=== PATIENT | male | born 1965 | race Caucasian/White ===

== ENCOUNTER → 2017-04-16 | Outpatient (CLI) | payer MEDICARE ==
--- NOTE | 2017-04-16 11:49 | XR ---
EXAMINATION TYPE: XR sternum DATE OF EXAM: 04/16/2017 COMPARISON: NONE HISTORY: Precordial pain TECHNIQUE: 3 view sternum FINDINGS: Retrosternal space is normal. No acute fractures are evident. Sternomanubrial junction appe ars normal. Sternal clavicular junction is unremarkable. IMPRESSION: 1. Normal sternum
== END ==
LOC: RADXRMAIN 11:26
PROVIDERS: ATTEND Family Medicine
DX: R07.2 Precordial pain (principal)
CPT/HCPCS: 71120

== ENCOUNTER → 2017-06-20 | Outpatient (CLI) | payer MEDICARE ==
--- NOTE | 2017-06-20 14:07 | CT ---
EXAMINATION TYPE: CT abdomen pelvis w con DATE OF EXAM: 06/20/2017 COMPARISON: 07/31/2014 HISTORY: 52-year-old male complains of constipation. TECHNIQUE: Contiguous axial scanning of the abdomen and pelvis following administration of 100 ml Omn ipaque 300 IV contrast. Delayed images through the kidneys and coronal/sagittal reconstructions perf ormed. CT DLP: 935 mGycm Automated exposure control for dose reduction was used. FINDINGS: Heart is normal size without pericardial effusion. Lung bases clear without pleural effusion. No focal liver lesion or biliary ductal dilatation. Gallbladder, adrenal glands, kidneys, spleen, and pancreas within normal limits. No dilated small bowel, free fluid, or free air. No mesenteric or retroperitoneal lymphadenopathy see n. 1.3 cm cystic focus in the left paraaortic region at the level of the kidneys is unchanged from 20 15 compatible with a benign etiology. There is a right abdominal loop ileostomy. Small parastomal hernia containing ileal loop is unchanged measuring 5.7 cm wide. There is scattered minimal to mild stool within the colon but with fecal impaction at the level of th e rectum which measures 9.7 cm x 8.9 cm. No associated wall thickening or surrounding inflammation. B ladder urine distended. No abnormal fluid collection in the pelvis or pelvic lymphadenopathy. Bones: Degenerative changes at the SI joints. No osseous destructive process. IMPRESSION: 1. RIGHT ABDOMINAL LOOP ILEOSTOMY WITH SIMILAR SMALL PARASTOMAL HERNIA MEASURING 5.7 CM WIDE. 2. FECAL IMPACTION AT THE LEVEL OF THE RECTUM WHICH IS DISTENDED UP TO 9.7 X 8.9 CM. THE REMAINDER OF THE COLON CONTAINS ONLY MINIMAL TO MILD STOOL.
== END | disposition home or self-care (01) ==
LOC: RADCTMAIN 11:36
PROVIDERS: ATTEND Surgery
DX: K43.5 Parastomal hernia without obstruction or gangrene (principal); K56.41 Fecal impaction
CPT/HCPCS: 74177; Q9967

== ENCOUNTER → 2018-12-30 | Outpatient (CLI) | payer MEDICARE ==
--- NOTE | 2018-12-30 08:42 | CT ---
EXAMINATION TYPE: CT abdomen pelvis wo con DATE OF EXAM: 12/30/2018 COMPARISON: 06/20/2017 HISTORY: 53-year-old male Colitis CT DLP: 285.80 mGycm. Automated exposure control for dose reduction was used. TECHNIQUE: Contiguous axial scanning of the abdomen and pelvis without IV contrast. Coronal and sagit filemon reconstructions performed. FINDINGS: Heart normal size without pericardial effusion. Strandy atelectasis posterior left base without pleur al effusion. Noncontrast appearance of the liver, gallbladder, adrenal glands, kidneys, spleen, and pancreas show no gross abnormality. Lack of IV contrast decreases sensitivity. A 1.4 cm nodular structure along the left periaortic retroperitoneum is unchanged back to 2015 sugges ting a benign etiology, probably ectatic/dilated lymphatic channel. No dilated small bowel, free fluid, or free air. No mesenteric or retroperitoneal lymphadenopathy. Right lower quadrant ostomy is redemonstrated. Parastomal hernia contains a few loops of nonobstructe d small bowel and measures 7.9 cm wide versus 6.1 cm wide on 06/20/2017. There is moderate stool within the cecum. Additional large amount of stool in the rectum which is dis tended up to 7.9 x 8.9 cm versus 8.9 x 9.7 cm on 06/20/2017. The remainder of the colon is collapsed. No pericolonic inflammatory change. Bladder urine distended. No abnormal fluid collection in the pelvis or pelvic lymphadenopathy seen. Bones: Degenerative bridging bony ankylosis at the SI joints. Degenerative disc disease L5-S1. No oss eous destructive process. IMPRESSION: 1. Right lower quadrant ostomy and associated parastomal hernia (7.9 cm wide versus 6.1 cm wide on ) containing a few nonobstructed small bowel loops. 2. Moderate stool in the cecum. A large amount of stool distends the rectum (distended up to 8.9 x 7 .9 cm versus 9.7 x 8.9 cm, previously).
== END | disposition home or self-care (01) ==
LOC: RADCTMAIN 06:29
PROVIDERS: ATTEND Surgery Plastic and Reconstructive Surgery
DX: R19.5 Other fecal abnormalities (principal)
CPT/HCPCS: 74176; Q9967

== ENCOUNTER → 2018-12-31 | Outpatient (CLI) | payer MEDICARE ==
[2018-12-31 11:16] VITALS: BP 117/78; PULSE 102; RESP 16; TEMP 99.1
== END | disposition home or self-care (01) ==
LOC: PROCWHC3 10:53
PROVIDERS: ATTEND Surgery Plastic and Reconstructive Surgery
DX: K59.2 Neurogenic bowel, not elsewhere classified (principal); K52.9 Noninfective gastroenteritis and colitis, unspecified; Z93.2 Ileostomy status
CPT/HCPCS: 99213

== ENCOUNTER → 2019-01-28 | Outpatient (CLI) | payer MEDICARE ==
[2019-01-28 11:24] LABS: Basophils % (A) 1 %; Eosinophils # (A) 0.1 k/uL (0-0.7); Eosinophils % (A) 2 %; HCT 42.3 % (39.0-53.0); HGB 14.2 gm/dL (13.0-17.5); Lymphocytes # (A) 0.9 k/uL (1.0-4.8); Lymphocytes % (A) 20 %; MCH 31.5 pg (25.0-35.0); MCHC 33.5 g/dL (31.0-37.0); MCV 93.8 fL (80.0-100.0); Mean Platelet Volume 6.1; Monocytes # (A) 0.2 k/uL (0-1.0); Monocytes % (A) 5 %; Neutrophils # (A) 3.2 k/uL (1.3-7.7); Neutrophils % (A) 70 %; Platelet Count 216 k/uL (150-450); RDW 12.3 % (11.5-15.5); WBC 4.6 k/uL (3.8-10.6)
[2019-01-28 16:46] LABS: T4, Free (Free Thyroxine) 1.1 ng/dL (0.80-1.80)
[2019-01-28 16:56] LABS: African American GFR (CKD) 99.1 (60.0-200.0); Albumin 4.7 g/dL (3.80-4.90); Albumin/Globulin Ratio 2.47 (1.60-3.17); Bilirubin, Conjugated 0.2 mg/dL (0.20-0.40); Bilirubin,Unconjugated 0.4 mg/dL; Calcium 9.1 mg/dL (8.7-10.3); Chol/HDL Ratio 3.21; Globulin 1.9 g/dL (1.6-3.3); LDL Cholesterol,Calculated 113.6 mg/dL (0.0-131.0); Total Bilirubin 0.6 mg/dL (0.2-1.2); Total Protein 6.6 g/dL (6.2-8.2); VLDL Calculation 10.4 mg/dL (5.00-40.00)
== END | disposition home or self-care (01) ==
LOC: LABWHC1 10:46
PROVIDERS: ATTEND Clinical Nurse Specialist Psychiatric/Mental Health
DX: F31.81 Bipolar II disorder (principal)
CPT/HCPCS: 36415; 80053; 80061; 80164; 82150; 82248; 82306; 83036; 83690; 84439; 84443; 84479; 85025

== ENCOUNTER → 2019-03-10 | Outpatient (CLI) | payer MEDICARE | END | disposition home or self-care (01) | LOC: LABWHC1 11:09 | PROVIDERS: ATTEND Psychiatry & Neurology Psychiatry | DX: F31.9 Bipolar disorder, unspecified (principal); Z51.81 Encounter for therapeutic drug level monitoring | CPT/HCPCS: 36415; 82306 ==

== ENCOUNTER 2020-05-29 02:35 | Inpatient (IN) | payer MEDICARE ==
[2020-05-29 03:31] LABS: ALT 17 U/L (4-49); AST 22 U/L (17-59); African American GFR (CKD) >90 (>60 ml/min/1.73 sqM); Albumin 4.3 g/dL (3.5-5.0); Alkaline Phosphatase 78 U/L (38-126); Amylase 119 U/L (30-110); Anion Gap 11 mmol/L; Basophils % (A) 0 %; Blood Urea Nitrogen 15 mg/dL (9-20); Carbon Dioxide 24 mmol/L (22-30); Chloride 105 mmol/L (98-107); Eosinophils # (A) 0.1 k/uL (0-0.7); Eosinophils % (A) 1 %; Glucose 123 mg/dL (74-99); HCT 43.3 % (39.0-53.0); HGB 14.5 gm/dL (13.0-17.5); Lipase 147 U/L (23-300); Lymphocytes # (A) 0.9 k/uL (1.0-4.8); Lymphocytes % (A) 9 %; MCH 30.9 pg (25.0-35.0); MCHC 33.6 g/dL (31.0-37.0); Mean Platelet Volume 6.9; Monocytes # (A) 0.5 k/uL (0-1.0); Monocytes % (A) 5 %; Neutrophils # (A) 9.2 k/uL (1.3-7.7); Neutrophils % (A) 85 %; Non-African American GFR(CKD) >90 (>60 ml/min/1.73 sqM); Platelet Count 214 k/uL (150-450); Potassium 3.6 mmol/L (3.5-5.1); RDW 12.4 % (11.5-15.5); Sodium 140 mmol/L (137-145); Total Bilirubin 0.5 mg/dL (0.2-1.3); Total Protein 7.3 g/dL (6.3-8.2); WBC 10.8 k/uL (3.8-10.6)
[2020-05-29] MEDS ORDERED: ONDANSETRON 4 MG/2 ML VIAL IVP STA ×2 (03:44→03:48)
[2020-05-29] MEDS ORDERED: MORPHINE SULFATE 4 MG/ML SYRINGE IV STA (03:48)
--- NOTE | 2020-05-29 04:22 | CT ---
EXAM: CT Abdomen and Pelvis Without Intravenous Contrast CLINICAL HISTORY: ITS.REASON CT Reason: abdominal pain TECHNIQUE: Axial computed tomography images of the abdomen and pelvis without intravenous contrast. CTDI is 10.77 mGy and DLP is 588.9 mGy-cm. This CT exam was performed using one or more of the following dose reduction techniques: automated exposure control, adjustment of the mA and/or kV according to patient size, and/or use of iterative reconstruction technique. COMPARISON: 12/30/2018 FINDINGS: Lung bases: No mass. No consolidation. ABDOMEN: Liver: Unremarkable. Gallbladder and bile ducts: Unremarkable. Pancreas: No ductal dilation. Spleen: Unremarkable. Adrenals: Unremarkable. Kidneys and ureters: No obstructing stones. No hydronephrosis. Stomach and bowel: Evidence of small bowel obstruction with transition point in the right parastomal hernia. Mild inflammation around the small bowel loop in the right lower quadrant proximal to the hernia sac. Mild hiatal hernia. Severe stool impaction at the rectum. PELVIS: Appendix: No evidence of appendicitis. Bladder: No stones. Reproductive: Unremarkable. ABDOMEN and PELVIS: Intraperitoneal space: Unremarkable. Bones/joints: No acute fractures. Soft tissues: Right parastomal hernia. Vasculature: No abdominal aortic aneurysm. Lymph nodes: No enlarged lymph nodes. IMPRESSION: Evidence of small bowel obstruction with transition point in the right parastomal hernia. There is mild inflammation in the small bowel loop proximal to the hernia sac, suspicious for incarceration.
[2020-05-29] MEDS ORDERED: HYDROmorphone 1 MG/ML 1 ML SYRINGE IVP STA (04:31)
[2020-05-29] MEDS ORDERED: HYDROmorphone 1 MG/ML 1 ML SYRINGE IVP PRN (04:59)
[2020-05-29] MEDS ORDERED: HYDROmorphone 0.5 MG/0.5 ML SYRINGE IVP PRN (04:59)
[2020-05-29] MEDS ORDERED: ONDANSETRON 4 MG/2 ML VIAL IVP PRN (04:59)
[2020-05-29] MEDS ORDERED: NALOXONE 0.4 MG/ML 1 ML VIAL IV PRN (04:59)
[2020-05-29] MEDS: SODIUM CHLORIDE 0.9% 1,000 ML IV SCH ×3 (06:26→22:06)
[2020-05-29] MEDS: FAMOTIDINE 20 MG/2 ML VIAL IV SCH ×2 (06:34→16:41)
[2020-05-29] MEDS ORDERED: ONDANSETRON 4 MG TAB PO PRN (08:34)
[2020-05-29] MEDS: lamoTRIgine 100 MG TAB PO SCH (08:54)
[2020-05-29] MEDS: CHOLECALCIFEROL 25 MCG (1000 IU) TABLET PO SCH (08:54)
[2020-05-29] MEDS: buPROPion XL 300 MG TAB.ER.24H PO SCH (08:55)
--- NOTE | 2020-05-29 09:29 | P.CONS ---
History of Present Illness - Reason for Consult Leukocytosis, medical management, bipolar disorder - History of Present Illness Patient is a very pleasant 55-year-old gentleman presented to ER with the compla ints of severe abdominal pain. Patient has ileostomy patient has a hernia from the ileostomy. Patient was evaluated for surgery, periosteal hernia was reduced after which patient will be better but still having pain now. Patient is nauseous with Dilaudid patient was started on [place] for pain. Patient does have seizure disorder didn't have any seizures for many years. Patient is on Lamictal, Risperdal and Wellbutrin for bipolar disorder. As patient didn't have any seizures for many years of good and continue Wellbutrin as well. Review of Systems REVIEW OF SYSTEMS: CONSTITUTIONAL: No fever, no malaise, no fatigue. HEENT: No recent visual problems or hearing problems. Denied any sore throat. CARDIOVASCULAR: No chest pain, orthopnea, PND, no palpitations, no syncope. PULMONARY: No shortness of breath, no cough, no hemoptysis. GASTROINTESTINAL: As mentioned in the interval history NEUROLOGICAL: No headaches, no weakness, no numbness. HEMATOLOGICAL: Denies any bleeding or petechiae. GENITOURINARY: Denies any burning micturition, frequency, or urgency. MUSCULOSKELETAL/RHEUMATOLOGICAL: Denies any joint pain, swelling, or any muscle pain. ENDOCRINE: Denies any polyuria or polydipsia. The rest of the 14-point review of systems is negative. Past Medical History Past Medical History: Neurologic Disorder, Seizure Disorder, Skin Disorder Additional Past Medical History / Comment(s): VIPIN'S DISEASE, PARKINSON'S, BIPOLAR. LAST SEIZURE 01/2014. 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 LAZY BOWEL THEREFORE ILEOSTOMY. History of Any Multi-Drug Resistant Organisms: None Reported Past Surgical History: Hernia Repair, Orthopedic Surgery Additional Past Surgical History / Comment(s): RT FOOT SURG, COLONOSCOPY 05/2013- NEEDED TO BE CLEANED OUT BETTER- REPEAT COLONOSCOPY 06/29/14.medical history - being checked for vipin's disease. ILEOSTOMY. Past Anesthesia/Blood Transfusion Reactions: No Reported Reaction Past Psychological History: Bipolar Smoking Status: Never smoker Past Alcohol Use History: None Reported Past Drug Use History: None Reported - Past Family History Father Family Medical History: Unable to Obtain Mother Family Medical History: Unable to Obtain Medications and Allergies Home Medications Medication Instructions Recorded Confirmed Type buPROPion XL [Wellbutrin XL] 300 mg PO DAILY 05/20/14 05/29/20 History risperiDONE 3 mg PO HS 05/20/14 05/29/20 History Cholecalciferol [Vitamin D3 (25 50 mcg PO DAILY 05/29/20 05/29/20 History Mcg = 1000 Iu)] lamoTRIgine [LaMICtal] 200 mg PO DAILY 05/29/20 05/29/20 History ondansetron HCL [Zofran] 8 mg PO Q8HR PRN 05/29/20 05/29/20 History Allergies Allergy/AdvReac Type Severity Reaction Status Date / Time No Known Allergies Allergy Verified 05/29/20 08:13 Physical Exam Vitals: Vital Signs Temp Pulse Pulse Resp BP BP Pulse Ox 05/29/20 05:40 98.2 F 76 16 164/77 98 05/29/20 03:18 97.5 F L 74 16 151/82 98 05/29/20 02:43 98.5 F 100 18 140/86 98 Intake and Output 05/28/20 05/29/20 05/29/20 22:59 06:59 14:59 Intake Total 0 Balance 0 Intake: Oral 0 Other: Weight 81.647 kg PHYSICAL EXAMINATION: GENERAL: The patient is alert and oriented x3, not in any acute distress. Well developed, well nourished. HEENT: Pupils are round and equally reacting to light. EOMI. No scleral icterus. No conjunctival pallor. Normocephalic, atraumatic. No pharyngeal erythema. No thyromegaly. CARDIOVASCULAR: S1 and S2 present. No murmurs, rubs, or gallops. PULMONARY: Chest is clear to auscultation, no wheezing or crackles. ABDOMEN: Soft, nontender, nondistended, normoactive bowel sounds. No palpable organomegaly. She has an ileostomy in the right side no hernia when I evaluated the patient that was already reduced to general surgery MUSCULOSKELETAL: No joint swelling or deformity. EXTREMITIES: No cyanosis, clubbing, or pedal edema. NEUROLOGICAL: Gross neurological examination did not reveal any focal deficits. SKIN: No rashes. Results CBC & Chem 7: 05/29/20 03:15 05/29/20 03:15 Labs: Abnormal Lab Results - Last 24 Hours (Table) 05/29/20 05/29/20 Range/Units 03:15 03:15 WBC 10.8 H (3.8-10.6) k/uL Neutrophils # 9.2 H (1.3-7.7) k/uL Lymphocytes # 0.9 L (1.0-4.8) k/uL Glucose 123 H (74-99) mg/dL Amylase 119 H (30-110) U/L Assessment and Plan Plan: -Abdominal pain secondary to periosteal hernia being managed by general surgery. -Bipolar disorder continue with Lamictal risperidone and bupropion as patient's symptoms are very well controlled on this medication regimen and patient didn't have any seizures for years because of which continued all 3 of these medications. Patient is able to tolerate by mouth medications at this time. -Seizure disorder -DVT prophylaxis as per primary service
--- NOTE | 2020-05-29 10:43 | P.GSHP ---
History of Present Illness H&P Date: 05/29/20 Chief Complaint: Bowel obstruction 55-year-old male came to the ER last night with complaints of abdominal pain. Says it began rather acutely. Associated with nausea and decreased ostomy output. According to the ER physician the site around the ostomy was tender. CAT scan was obtained which demonstrates evidence of small bowel obstruction and a parastomal hernia. Hernia site thought to be the transition point. Patient had a loop ileostomy in 2014 for chronic constipation. Has had a known parastomal hernia for the last several years. Never had any prior problems with the hernia. - Review of Systems Comment: The patient denies any acute changes in vision or hearing, no dysphagia or odynophagia, no chest pain or shortness of breath, no dysuria or hematuria, no headache, no runny nose, no rectal bleeding or melena, no unexplained weight loss Past Medical History Past Medical History: Neurologic Disorder, Seizure Disorder, Skin Disorder Additional Past Medical History / Comment(s): VIPIN'S DISEASE, PARKINSON'S, BIPOLAR. LAST SEIZURE 01/2014. 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 LAZY BOWEL THEREFORE ILEOSTOMY. History of Any Multi-Drug Resistant Organisms: None Reported Past Surgical History: Hernia Repair, Orthopedic Surgery Additional Past Surgical History / Comment(s): RT FOOT SURG, COLONOSCOPY 05/2013- NEEDED TO BE CLEANED OUT BETTER- REPEAT COLONOSCOPY 06/29/14.medical history - being checked for vipin's disease. ILEOSTOMY. Past Anesthesia/Blood Transfusion Reactions: No Reported Reaction Past Psychological History: Bipolar Smoking Status: Never smoker Past Alcohol Use History: None Reported Past Drug Use History: None Reported - Past Family History Father Family Medical History: Unable to Obtain Mother Family Medical History: Unable to Obtain Medications and Allergies Home Medications Medication Instructions Recorded Confirmed Type buPROPion XL [Wellbutrin XL] 300 mg PO DAILY 05/20/14 05/29/20 History risperiDONE 3 mg PO HS 05/20/14 05/29/20 History Cholecalciferol [Vitamin D3 (25 50 mcg PO DAILY 05/29/20 05/29/20 History Mcg = 1000 Iu)] lamoTRIgine [LaMICtal] 200 mg PO DAILY 05/29/20 05/29/20 History ondansetron HCL [Zofran] 8 mg PO Q8HR PRN 05/29/20 05/29/20 History Allergies Allergy/AdvReac Type Severity Reaction Status Date / Time No Known Allergies Allergy Verified 05/29/20 08:13 Surgical - Exam Vital Signs Temp Pulse Resp BP Pulse Ox 98.5 F 100 18 140/86 98 05/29/20 02:43 05/29/20 02:43 05/29/20 02:43 05/29/20 02:43 05/29/20 02:43 Physical exam: General: Well-developed, well-nourished HEENT: Normocephalic, sclerae nonicteric Abdomen: Mild diffuse tenderness, slightly increased around the ostomy site, able to reduce the parastomal hernia without significant difficulty and without significant tenderness. Following reduction the patient was evaluated 30 m inutes later and the ostomy bag was filled with liquid green stool. Extremities: No edema Neuro: Alert and oriented Results - Labs 05/29/20 03:15 05/29/20 03:15 Abnormal Lab Results - Last 24 Hours (Table) 05/29/20 05/29/20 Range/Units 03:15 03:15 WBC 10.8 H (3.8-10.6) k/uL Neutrophils # 9.2 H (1.3-7.7) k/uL Lymphocytes # 0.9 L (1.0-4.8) k/uL Glucose 123 H (74-99) mg/dL Amylase 119 H (30-110) U/L Diabetes panel 05/29/20 Range/Units 03:15 Sodium 140 (137-145) mmol/L Potassium 3.6 (3.5-5.1) mmol/L Chloride 105 (98-107) mmol/L Carbon Dioxide 24 (22-30) mmol/L BUN 15 (9-20) mg/dL Creatinine 0.79 (0.66-1.25) mg/dL Glucose 123 H (74-99) mg/dL Calcium 9.0 (8.4-10.2) mg/dL AST 22 (17-59) U/L ALT 17 (4-49) U/L Alkaline Phosphatase 78 (38-126) U/L Total Protein 7.3 (6.3-8.2) g/dL Albumin 4.3 (3.5-5.0) g/dL Calcium panel 05/29/20 Range/Units 03:15 Calcium 9.0 (8.4-10.2) mg/dL Albumin 4.3 (3.5-5.0) g/dL Pituitary panel 05/29/20 Range/Units 03:15 Sodium 140 (137-145) mmol/L Potassium 3.6 (3.5-5.1) mmol/L Chloride 105 (98-107) mmol/L Carbon Dioxide 24 (22-30) mmol/L BUN 15 (9-20) mg/dL Creatinine 0.79 (0.66-1.25) mg/dL Glucose 123 H (74-99) mg/dL Calcium 9.0 (8.4-10.2) mg/dL Adrenal panel 05/29/20 Range/Units 03:15 Sodium 140 (137-145) mmol/L Potassium 3.6 (3.5-5.1) mmol/L Chloride 105 (98-107) mmol/L Carbon Dioxide 24 (22-30) mmol/L BUN 15 (9-20) mg/dL Creatinine 0.79 (0.66-1.25) mg/dL Glucose 123 H (74-99) mg/dL Calcium 9.0 (8.4-10.2) mg/dL Total Bilirubin 0.5 (0.2-1.3) mg/dL AST 22 (17-59) U/L ALT 17 (4-49) U/L Alkaline Phosphatase 78 (38-126) U/L Total Protein 7.3 (6.3-8.2) g/dL Albumin 4.3 (3.5-5.0) g/dL Assessment and Plan (1) Small bowel obstruction Narrative/Plan: 55-year-old male with small bowel obstruction secondary to parastomal hernia. Hernia able to be reduced. Clinically improved at this time. We'll reevaluate tomorrow. Begin clear liquid diet. Current Visit: Yes Status: Acute Code(s): K56.609 - UNSP INTESTNL OBST, UNSP TO PARTIAL VERSUS COMPLETE OBST SNOMED Code(s): 617117163
[2020-05-29 14:50] LABS: Appearance,Urine Clear (Clear); Bilirubin,Urine Negative (Negative); Blood,Urine Small (Negative); Color,Urine Yellow; Glucose,Urine (UA) Negative (Negative); Hyaline Casts,Urine 1 /lpf (0-2); Ketones,Urine 2+ (Negative); Leukocyte Esterase,Urine Negative (Negative); Mucus,Urine Few /hpf; Nitrite,Urine Negative (Negative); PH, Urine 5.5 (5.0-8.0); Protein,Urine Trace (Negative); RBC,Urine 1 /hpf (0-5); Specific Gravity,Urine 1.024 (1.001-1.035); Urobilinogen,Urine <2.0 mg/dL (<2.0); WBC,Urine 3 /hpf (0-5)
[2020-05-29] MEDS: risperiDONE 1 MG TAB PO SCH (20:32)
[2020-05-29 20:57] LABS: Glucose,Whole Blood 91 mg/dL (75-99)
[2020-05-30] MEDS: FAMOTIDINE 20 MG/2 ML VIAL IV SCH ×2 (05:01→17:46)
[2020-05-30] MEDS: SODIUM CHLORIDE 0.9% 1,000 ML IV SCH ×2 (05:02→21:35)
[2020-05-30] MEDS: buPROPion XL 300 MG TAB.ER.24H PO SCH (08:41)
[2020-05-30] MEDS: lamoTRIgine 100 MG TAB PO SCH (08:41)
[2020-05-30] MEDS: CHOLECALCIFEROL 25 MCG (1000 IU) TABLET PO SCH (08:41)
--- NOTE | 2020-05-30 13:07 | P.PN ---
Subjective Patient is a very pleasant 55-year-old gentleman presented to ER with the complaints of severe abdominal pain. Patient has ileostomy patient has a hernia from the ileostomy. Patient was evaluated for surgery, periosteal hernia was reduced after which patient will be better but still having pain now. Patient is nauseous with Dilaudid patient was started on [place] for pain. Patient does have seizure disorder didn't have any seizures for many years. Patient is on Lamictal, Risperdal and Wellbutrin for bipolar disorder. As patient didn't have any seizures for many years of good and continue Wellbutrin as well. 05/30/2020 patient is clinically doing well tolerating liquid diet very well no more abdominal pain patient probably will be discharged today. Constitutional: Denied any fatigue denied any fever. Cardio vascular: denied any chest pain, palpitations Gastrointestinal denied any nausea vomiting Pulmonary: Denied any shortness of breath cough Neurologic denied any new focal deficits All inpatient medications were reviewed and appropriate changes in these medications as dictated in the interval history and assessment and plan. Objective - Vital Signs Vital signs: Vital Signs Temp 97.6 F 05/30/20 08:56 Pulse 90 05/30/20 08:56 Resp 16 05/30/20 08:56 BP 125/82 05/30/20 08:56 Pulse Ox 97 05/30/20 08:56 Intake & Output 05/29/20 05/30/20 05/30/20 18:59 06:59 18:59 Intake Total 300 Balance 300 Intake: Oral 300 Other: # Voids 1 2 # Bowel Movements 1 - Exam PHYSICAL EXAMINATION: GENERAL: The patient is alert and oriented x3, not in any acute distress. Well developed, well nourished. HEENT: Pupils are round and equally reacting to light. EOMI. No scleral icterus. No conjunctival pallor. Normocephalic, atraumatic. No pharyngeal erythema. No thyromegaly. CARDIOVASCULAR: S1 and S2 present. No murmurs, rubs, or gallops. PULMONARY: Chest is clear to auscultation, no wheezing or crackles. ABDOMEN: Soft, nontender, nondistended, normoactive bowel sounds. No palpable organomegaly. She has an ileostomy in the right side no hernia when I evaluated the patient that was already reduced to general surgery MUSCULOSKELETAL: No joint swelling or deformity. EXTREMITIES: No cyanosis, clubbing, or pedal edema. NEUROLOGICAL: Gross neurological examination did not reveal any focal deficits. SKIN: No rashes. - Labs CBC & Chem 7: 05/29/20 03:15 05/29/20 03:15 Labs: Abnormal Lab Results - Last 24 Hours (Table) 05/29/20 Range/Units 14:43 Urine Protein Trace H (Negative) Urine Ketones 2+ H (Negative) Urine Blood Small H (Negative) Urine Mucus Few H (None) /hpf Assessment and Plan Plan: -Abdominal pain secondary to periosteal hernia being managed by general surgery. -Bipolar disorder continue with Lamictal risperidone and bupropion -Seizure disorder -DVT prophylaxis as per primary service Patient can be discharged from medical perspective
[2020-05-30] MEDS: risperiDONE 1 MG TAB PO SCH (21:36)
[2020-05-31] MEDS: FAMOTIDINE 20 MG/2 ML VIAL IV SCH (05:48)
[2020-05-31] MEDS: SODIUM CHLORIDE 0.9% 1,000 ML IV SCH (05:49)
--- NOTE | 2020-05-31 06:41 | P.PN ---
Subjective Progress Note Date: 05/30/20 CHIEF COMPLAINT: Small bowel obstruction HISTORY OF PRESENT ILLNESS: The patient is a 55 year old male who was admitted over the weekend for small bowel obstruction by Dr. Canales. Patient has history of neurogenic colon including chronic constipation with subsequent open loop ileostomy including appendectomy done 07/27/[address] Christensen. Information is also obtained by patient's old medical records and patient's at bedside. The patient's also reports chronic impactions in the past attempted colonoscopies. No recent colonoscopies per patient records since surgery over 6 years ago. Patient was admitted with crampy abdominal pain and minimal output from his ileostomy. Since admission, parastomal hernia was reduced over the weekend. This morning, patient having output from ileostomy and tolerating clear liquid diet. PAST MEDICAL HISTORY: 1. Medina's disease 2. Depressive disorder 3. Chronic constipation with neurogenic bladder 4. Seizure disorder 5. Parkinson's disease 6. Bipolar disorder 7. Rosacea PAST SURGICAL HISTORY: 1. Loop ileostomy and appendectomy, 2014 2. Colonoscopies 3. Right foot surgery MEDICATIONS: Home Medications Medication Instructions Recorded Confirmed buPROPion XL [Wellbutrin XL] 300 mg PO DAILY 05/20/14 05/29/20 risperiDONE 3 mg PO HS 05/20/14 05/29/20 Cholecalciferol [Vitamin D3 (25 50 mcg PO DAILY 05/29/20 05/29/20 Mcg = 1000 Iu)] lamoTRIgine [LaMICtal] 200 mg PO DAILY 05/29/20 05/29/20 ondansetron HCL [Zofran] 8 mg PO Q8HR PRN 05/29/20 05/29/20 ALLERGIES: Allergies Allergy/AdvReac Type Severity Reaction Status Date / Time No Known Allergies Allergy Verified 05/29/20 08:13 SOCIAL HISTORY: . No active tobacco abuse FAMILY HISTORY: Noncontributory REVIEW OF ORGAN SYSTEMS: CONSTITUTIONAL: No fevers or chills. EYES: No double vision. Wears glasses. HEENT: No difficulties with hearing. No nosebleeds. No difficulty swallowing. RESPIRATORY: Denies pneumonia. Denies any troubles with breathing or dyspnea on exertion. CARDIOVASCULAR: Denies any chest pain, palpitations, or recent heart attacks. GASTROINTESTINAL: History of chronic constipation with neurogenic colon requiring loop ileostomy. GENITOURINARY: Denies any blood in urine or increased urinary frequency. 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 History of seizure disorder MUSCULOSKELETAL: Denies any back pain, stiffness or joint arthritis. SKIN: No current skin cancer. No rash. PSYCHIATRIC: Has depression. No suicidal thoughts. Has bipolar disorder ENDOCRINE: Denies current thyroid disorders. Denies any blood sugar glucose intolerance. HEME/LYMPHATIC: Denies any lumps and bumps around the neck. No recent deep venous thrombosis. ALLERGY/IMMUNOLOGY: No immunoglobulin therapy. No immune deficiencies. BREAST: Denies current breast lumps, pain or nipple discharge. PHYSICAL EXAM: VITALS: Reviewed CONSTITUTIONAL: Well developed and in no acute distress. EYES: Conjuctivae without sclera icterus. Extraocular movements grossly intact. HEAD, EARS, NOSE, THROAT: Moist buccal mucosa. Head is atraumatic, normocephalic. Hears conversational speech. No nasal drainage. NECK: No JV distention. RESPIRATORY: Non-labored respirations and equal bilateral excursions. No gross wheezes. CARDIOVASCULAR: Regular rate and rhythm. Extremities without moderate edema. 2+ radial pulses. ABDOMEN: Soft. Non-tender. Right lower quadrant loop ileostomy with flatus and liquid stool at the time of my assessment. No peritonitis. MUSCULOSKELETAL: Range of motion bilateral upper extremities within normal limits. Nail and fingers with good capillary refill. SKIN: Warm and well perfused with good skin turgor. NEUROLOGIC: Cranial nerves II through XII grossly intact. Sensation upper and extremities intact. No focal or lateralizing signs. No intentional or resting tremors. PSYCH: Alert and oriented to person, place and time. CLINCAL LABS: Reviewed. WBC 10.8 on admission, elevated. Ketones positive urinanalysis. IMAGING: Independently reviewed CT of the abdomen pelvis demonstrated parastomal hernia with transition point with small bowel dilation. No findings of abscess. Large fecal impaction identified. RADIOLOGY: Report reviewed with transition point in right lower quadrant. RECORDS: previous old records reviewed from July 2014 operative report. ASSESSMENT: 1. Parastomal hernia with small bowel obstruction 2. Neurogenic colon PLAN: 1. Patient reports intermittent bleeding at ostomy site. Ostomy nurse present for assessment. Findings consistent with irritation. 2. May advance to full liquid diet. 3. Recommend soapsuds enemas for large fecal impaction. 4. Discharge pending toleration of diet. Objective - Vital Signs Vital signs: Vital Signs Temp 98.5 F 05/30/20 15:05 Pulse 92 05/30/20 15:05 Resp 17 05/30/20 15:05 BP 121/74 05/30/20 15:05 Pulse Ox 97 05/30/20 15:05 Intake & Output 05/29/20 05/30/20 05/30/20 18:59 06:59 18:59 Intake Total 300 Balance 300 Intake: Oral 300 Other: # Voids 1 2 1 # Bowel Movements 1 1 - Labs CBC & Chem 7: 05/29/20 03:15 05/29/20 03:15 Assessment and Plan (1) Parastomal hernia with obstruction and without gangrene Current Visit: Yes Status: Acute Code(s): K43.3 - PARASTOMAL HERNIA WITH OBSTRUCTION, WITHOUT GANGRENE SNOMED Code(s): 599760531 (2) South disease Current Visit: Yes Status: Acute Code(s): G10 - SOUTH'S DISEASE SNOMED Code(s): 50110771 (3) Seizure disorder Current Visit: Yes Status: Acute Code(s): G40.909 - EPILEPSY, UNSP, NOT INTRACTABLE, WITHOUT STATUS EPILEPTICUS SNOMED Code(s): 013418505 (4) Constipation Current Visit: No Status: Acute Code(s): K59.00 - CONSTIPATION, UNSPECIFIED SNOMED Code(s): 95091370
[2020-05-31 07:27] VITALS: BP 123/79; PULSE 88; RESP 19; TEMP 98.3
[2020-05-31] MEDS: buPROPion XL 300 MG TAB.ER.24H PO SCH (08:00)
[2020-05-31] MEDS: lamoTRIgine 100 MG TAB PO SCH (08:00)
[2020-05-31] MEDS: CHOLECALCIFEROL 25 MCG (1000 IU) TABLET PO SCH (08:00)
[2020-05-31 10:12] LABS: Basophils % (A) 1 %; Eosinophils # (A) 0.1 k/uL (0-0.7); Eosinophils % (A) 2 %; HCT 39.8 % (39.0-53.0); HGB 13.7 gm/dL (13.0-17.5); Lymphocytes # (A) 0.7 k/uL (1.0-4.8); Lymphocytes % (A) 11 %; MCH 31.9 pg (25.0-35.0); MCHC 34.4 g/dL (31.0-37.0); MCV 92.8 fL (80.0-100.0); Mean Platelet Volume 6.7; Monocytes # (A) 0.3 k/uL (0-1.0); Monocytes % (A) 6 %; Neutrophils # (A) 4.9 k/uL (1.3-7.7); Neutrophils % (A) 81 %; Platelet Count 215 k/uL (150-450); RBC 4.29 m/uL (4.30-5.90); RDW 12.5 % (11.5-15.5); WBC 6.1 k/uL (3.8-10.6)
--- NOTE | 2020-05-31 12:41 | P.DS ---
<Cora Hightower - Last Filed: 05/31/20 12:38> Providers Expected date of discharge: 05/31/20 Hospital Course: Discharge diagnosis 1. Parastomal hernia with small bowel obstruction 2. Neurogenic colon Hospital course The patient is a 55 year old male who was admitted over the weekend for small bowel obstruction by Dr. Canales. Patient has history of neurogenic colon including chronic constipation with subsequent open loop ileostomy including appendectomy done 07/27/[address] Christensen. The patient's also reports chronic impactions in the past attempted colonoscopies. No recent colonoscopies per patient records since surgery over 6 years ago. Patient was admitted with crampy abdominal pain and minimal output from his ileostomy. Since admission, parastomal hernia was reduced over the weekend. Patient is tolerating diet. He is no longer having any abdominal pain. He is up and ambulating. His ostomy output has improved. Patient is stable for discharge. 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 Signing provider agrees with the documented findings, assessment, and plan of care. Patient Condition at Discharge: Stable Plan - Discharge Summary Discharge Rx Participant: No New Discharge Prescriptions: Continue buPROPion XL [Wellbutrin XL] 300 mg PO DAILY risperiDONE 3 mg PO HS ondansetron HCL [Zofran] 8 mg PO Q8HR PRN PRN Reason: Nausea lamoTRIgine [LaMICtal] 200 mg PO DAILY Cholecalciferol [Vitamin D3 (25 Mcg = 1000 Iu)] 50 mcg PO DAILY Discharge Medication List buPROPion XL [Wellbutrin XL] 300 mg PO DAILY 05/20/14 [History] risperiDONE 3 mg PO HS 05/20/14 [History] Cholecalciferol [Vitamin D3 (25 Mcg = 1000 Iu)] 50 mcg PO DAILY 05/29/20 [History] lamoTRIgine [LaMICtal] 200 mg PO DAILY 05/29/20 [History] ondansetron HCL [Zofran] 8 mg PO Q8HR PRN 05/29/20 [History] Follow up Appointment(s)/Referral(s): Efrain Ashraf MD [Primary Care Provider] - 06/08/20 11:00 am Activity/Diet/Wound Care/Special Instructions: Diet low fiber Discharge Disposition: HOME SELF-CARE <Jenny Cruz - Last Filed: 06/01/20 10:15> Providers Date of admission: 05/29/20 05:01 Attending physician: Jenny Cruz Primary care physician: Efrain Ashraf - Discharge Diagnosis(es) (1) Parastomal hernia with obstruction and without gangrene Status: Acute (2) Moore disease Status: Acute (3) Seizure disorder Status: Acute (4) Constipation Status: Acute Hospital Course: As above. Patient had complaints of intermittent bleeding around ostomy. CT of the abdomen and pelvis independently reviewed by me without findings of parastomal abscess. Ostomy nurse had evaluated cystostomy including myself at bedside. Additionally, patient has fecal impaction with attempted disimpaction and enemas at bedside. Patient could not tolerate enemas. I went over in detail the patient is wide for referral to colorectal surgeon regarding neurogenic bladder and possible colostomy reversal versus parastomal hernia repair. Otherwise, patient stable for discharge.
== END 2020-05-31 14:54 | disposition home or self-care (01) | DRG 394 ==
LOC: EC 02:35 → 4SSUR 05:01
PROVIDERS: ADMIT Surgery Plastic and Reconstructive Surgery; ATTEND Surgery Plastic and Reconstructive Surgery
DX: K43.3 Parastomal hernia with obstruction, without gangrene (principal); K59.2 Neurogenic bowel, not elsewhere classified; G10 Huntington's disease; F31.9 Bipolar disorder, unspecified; G40.909 Epilepsy, unspecified, not intractable, without status epilepticus; G20 Parkinson's disease; Z93.2 Ileostomy status; K56.41 Fecal impaction; Z79.899 Other long term (current) drug therapy; N31.9 Neuromuscular dysfunction of bladder, unspecified
CPT/HCPCS: 36415; 74176; 80053; 81001; 82150; 83690; 85025; 87635; 96374; 96375; 99285

== ENCOUNTER 2020-07-02 13:53 | Emergency (ER) | payer MEDICARE ==
--- NOTE | 2020-07-02 15:09 | XR ---
EXAMINATION TYPE: XR chest 2V DATE OF EXAM: 07/02/2020 COMPARISON: 05/09/2012. HISTORY: Shortness of breath. TECHNIQUE: Frontal and lateral views of the chest are obtained. FINDINGS: There is no focal air space opacity, pleural effusion, or pneumothorax seen. The cardiac silhouette size is within normal limits. The osseous structures are intact. IMPRESSION: No acute cardiopulmonary process.
[2020-07-02] MEDS ORDERED: SODIUM CHLORIDE 0.9% 1,000 ML IV ONE (15:14)
[2020-07-02 15:42] LABS: Basophils % (A) 1 %; Eosinophils % (A) 1 %; HCT 46.5 % (39.0-53.0); Lymphocytes # (A) 0.5 k/uL (1.0-4.8); Lymphocytes % (A) 11 %; MCH 31.9 pg (25.0-35.0); MCHC 35.9 g/dL (31.0-37.0); MCV 88.9 fL (80.0-100.0); Mean Platelet Volume 7.3; Monocytes # (A) 0.4 k/uL (0-1.0); Monocytes % (A) 9 %; Neutrophils # (A) 3.4 k/uL (1.3-7.7); Neutrophils % (A) 78 %; Platelet Count 179 k/uL (150-450); RBC 5.23 m/uL (4.30-5.90); RDW 12.3 % (11.5-15.5); WBC 4.4 k/uL (3.8-10.6)
[2020-07-02 15:54] LABS: HGB 16.7 gm/dL (13.0-17.5)
[2020-07-02 16:07] LABS: Albumin 4.8 g/dL (3.5-5.0); C Reactive Protein 41.6 mg/L (<10.0); Calcium 9.2 mg/dL (8.4-10.2); Magnesium 2.3 mg/dL (1.6-2.3); Potassium 3.7 mmol/L (3.5-5.1); Total Bilirubin 0.5 mg/dL (0.2-1.3); Total Protein 7.8 g/dL (6.3-8.2)
[2020-07-02 16:12] LABS: INR 0.9 (<1.2); Partial Thromboplastin Time 25.5 sec (22.0-30.0); Prothrombin Time 9.9 sec (9.0-12.0)
[2020-07-02 16:15] LABS: D-Dimer 0.68 mg/L FEU (<0.60)
--- NOTE | 2020-07-02 17:00 | ED ---
Weakness HPI - General Chief complaint: Weakness Stated complaint: Covid +, Low bp, Weakness Source: patient Mode of arrival: ambulatory Limitations: no limitations - History of Present Illness Initial comments: Patient is a 55-year-old male with past medical history of Parkinson's, [place]'s, ileostomy secondary to neurogenic bowel who presents to the emergency department from [facility]. Patient states that he has been having weakness, cough and difficulty ambulating since Saturday. Patient went to [facility] and was diagnosed with Covid today. They recommended that he come into the emergency department as he did have low blood pressure and a high heart rate. Patient states he sustained 3 falls however denies any injuries. He did not hit his head. He denies any nausea or vomiting. Denies any changes in output from his ileostomy. No chest pain. No other alleviating, bearing inspector modifying factors - Related Data Home Medications Medication Instructions Recorded Confirmed buPROPion XL [Wellbutrin XL] 300 mg PO DAILY 05/20/14 05/29/20 risperiDONE 3 mg PO HS 05/20/14 05/29/20 Cholecalciferol [Vitamin D3 (25 50 mcg PO DAILY 05/29/20 05/29/20 Mcg = 1000 Iu)] lamoTRIgine [LaMICtal] 200 mg PO DAILY 05/29/20 05/29/20 ondansetron HCL [Zofran] 8 mg PO Q8HR PRN 05/29/20 05/29/20 Allergies Allergy/AdvReac Type Severity Reaction Status Date / Time No Known Allergies Allergy Verified 05/29/20 08:13 Review of Systems ROS Statement: Those systems with pertinent positive or pertinent negative responses have been documented in the HPI. ROS Other: All systems not noted in ROS Statement are negative. Past Medical History Past Medical History: Neurologic Disorder, Seizure Disorder, Skin Disorder Additional Past Medical History / Comment(s): SOUTH'S DISEASE, PARKINSON'S, BIPOLAR. LAST SEIZURE 01/2014. 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 LAZY BOWEL THEREFORE ILEOSTOMY. History of Any Multi-Drug Resistant Organisms: None Reported Past Surgical History: Hernia Repair, Orthopedic Surgery Additional Past Surgical History / Comment(s): RT FOOT SURG, COLONOSCOPY 05/2013- NEEDED TO BE CLEANED OUT BETTER- REPEAT COLONOSCOPY 06/29/14.medical history - being checked for south's disease. ILEOSTOMY. Past Anesthesia/Blood Transfusion Reactions: No Reported Reaction Past Psychological History: Bipolar Smoking Status: Never smoker Past Alcohol Use History: None Reported Past Drug Use History: None Reported - Past Family History Father Family Medical History: Unable to Obtain Mother Family Medical History: Unable to Obtain General Exam Limitations: no limitations General appearance: alert, in no apparent distress Head exam: Present: atraumatic, normocephalic, normal inspection Eye exam: Present: normal appearance, PERRL, EOMI. Absent: scleral icterus, conjunctival injection, periorbital swelling ENT exam: Present: normal exam, mucous membranes moist Neck exam: Present: normal inspection. Absent: tenderness, meningismus, lymphadenopathy Respiratory exam: Present: normal lung sounds bilaterally. Absent: respiratory distress, wheezes, rales, rhonchi, stridor Cardiovascular Exam: Present: normal rhythm, tachycardia, normal heart sounds. Absent: systolic murmur, diastolic murmur, rubs, gallop, clicks GI/Abdominal exam: Present: soft, normal bowel sounds, other (ileostomy right lower quadrant with green liquid stool). Absent: distended, tenderness, guarding, rebound, rigid Extremities exam: Present: normal inspection, full ROM, normal capillary refill. Absent: tenderness, pedal edema, joint swelling, calf tenderness Back exam: Present: normal inspection Neurological exam: Present: alert, oriented X3, CN II-XII intact Psychiatric exam: Present: normal affect, normal mood Skin exam: Present: warm, dry, intact, normal color. Absent: rash Course Vital Signs 07/02/20 07/02/20 07/02/20 14:05 15:37 17:03 Temperature 99.4 F 98.7 F Pulse Rate 111 H 101 H 105 H Respiratory 19 18 18 Rate Blood Pressure 104/72 130/92 146/98 O2 Sat by Pulse 97 96 96 Oximetry 07/02/20 07/02/20 07/02/20 19:20 19:40 20:32 Temperature 99.9 F H 99.2 F 101 F H Pulse Rate 109 H 109 H 108 H Respiratory 20 20 20 Rate Blood Pressure 150/92 154/89 159/95 O2 Sat by Pulse 95 97 96 Oximetry EKG Findings - EKG Comments: EKG Findings:: EKG demonstrates a sinus tachycardia with a ventricular rate of 114. NH interval 126. QRS 96. QTC of 432. No acute ST segment elevations. Minimal ST depression II and III. Medical Decision Making - Medical Decision Making Upon arrival patient is placed into room 14. There are history and physical exam was performed. IV is established and laboratory studies were conducted. Patient went for chest x-ray. Laboratory studies are reviewed and demonstrated d-dimer 0.68. Chest x-ray demonstrates no acute cardio pulmonary process. Patient did receive BAM infusion because of his neurologic condition. He also received IV fluids. Patient did have improvement in his symptoms and blood pressure improved. Patient does spike a fever. We did offer something for fever control however the patient refused and wanted to go home. We did call and discuss the care with the patient's . Instructed that if he has any new or worsening symptoms he must come back to the emergency department. Take Tylenol for fevers. Encourage fluid intake. Patient and his agreed to this and patient was discharged home in stable condition - Lab Data Result diagrams: 07/02/20 15:31 07/02/20 15:31 Lab Results 07/02/20 07/02/20 07/02/20 Range/Units 15:31 15:31 15:31 WBC 4.4 (3.8-10.6) k/uL RBC 5.23 (4.30-5.90) m/uL Hgb 16.7 D (13.0-17.5) gm/dL Hct 46.5 (39.0-53.0) % MCV 88.9 (80.0-100.0) fL MCH 31.9 (25.0-35.0) pg MCHC 35.9 (31.0-37.0) g/dL RDW 12.3 (11.5-15.5) % Plt Count 179 (150-450) k/uL MPV 7.3 Neutrophils % 78 % Lymphocytes % 11 % Monocytes % 9 % Eosinophils % 1 % Basophils % 1 % Neutrophils # 3.4 (1.3-7.7) k/uL Lymphocytes # 0.5 L (1.0-4.8) k/uL Monocytes # 0.4 (0-1.0) k/uL Eosinophils # 0.0 (0-0.7) k/uL Basophils # 0.0 (0-0.2) k/uL PT 9.9 (9.0-12.0) sec INR 0.9 (<1.2) APTT 25.5 (22.0-30.0) sec D-Dimer 0.68 H (<0.60) mg/L FEU Sodium 138 (137-145) mmol/L Potassium 3.7 (3.5-5.1) mmol/L Chloride 100 (98-107) mmol/L Carbon Dioxide 25 (22-30) mmol/L Anion Gap 13 mmol/L BUN 29 H (9-20) mg/dL Creatinine 1.30 H (0.66-1.25) mg/dL Est GFR (CKD-EPI)AfAm 72 (>60 ml/min/1.73 sqM) Est GFR (CKD-EPI)NonAf 62 (>60 ml/min/1.73 sqM) Glucose 127 H (74-99) mg/dL Plasma Lactic Acid Zechariah (0.7-2.0) mmol/L Calcium 9.2 (8.4-10.2) mg/dL Magnesium 2.3 (1.6-2.3) mg/dL Total Bilirubin 0.5 (0.2-1.3) mg/dL AST 30 (17-59) U/L ALT 15 (4-49) U/L Alkaline Phosphatase 86 (38-126) U/L Lactate Dehydrogenase 528 (313-618) U/L C-Reactive Protein 41.6 H (<10.0) mg/L Total Protein 7.8 (6.3-8.2) g/dL Albumin 4.8 (3.5-5.0) g/dL Procalcitonin (0.02-0.09) ng/mL 07/02/20 07/02/20 Range/Units 15:31 15:31 WBC (3.8-10.6) k/uL RBC (4.30-5.90) m/uL Hgb (13.0-17.5) gm/dL Hct (39.0-53.0) % MCV (80.0-100.0) fL MCH (25.0-35.0) pg MCHC (31.0-37.0) g/dL RDW (11.5-15.5) % Plt Count (150-450) k/uL MPV Neutrophils % % Lymphocytes % % Monocytes % % Eosinophils % % Basophils % % Neutrophils # (1.3-7.7) k/uL Lymphocytes # (1.0-4.8) k/uL Monocytes # (0-1.0) k/uL Eosinophils # (0-0.7) k/uL Basophils # (0-0.2) k/uL PT (9.0-12.0) sec INR (<1.2) APTT (22.0-30.0) sec D-Dimer (<0.60) mg/L FEU Sodium (137-145) mmol/L Potassium (3.5-5.1) mmol/L Chloride (98-107) mmol/L Carbon Dioxide (22-30) mmol/L Anion Gap mmol/L BUN (9-20) mg/dL Creatinine (0.66-1.25) mg/dL Est GFR (CKD-EPI)AfAm (>60 ml/min/1.73 sqM) Est GFR (CKD-EPI)NonAf (>60 ml/min/1.73 sqM) Glucose (74-99) mg/dL Plasma Lactic Acid Zechariah 1.6 (0.7-2.0) mmol/L Calcium (8.4-10.2) mg/dL Magnesium (1.6-2.3) mg/dL Total Bilirubin (0.2-1.3) mg/dL AST (17-59) U/L ALT (4-49) U/L Alkaline Phosphatase (38-126) U/L Lactate Dehydrogenase (313-618) U/L C-Reactive Protein (<10.0) mg/L Total Protein (6.3-8.2) g/dL Albumin (3.5-5.0) g/dL Procalcitonin 0.24 H (0.02-0.09) ng/mL Disposition Clinical Impression: COVID-19, TATO (acute kidney injury), Ileostomy present Disposition: HOME SELF-CARE Condition: Stable Instructions (If sedation given, give patient instructions): Coronavirus Disease 2019 (COVID-19) Additional Instructions: Please follow up with your PCP in 2-4 days. You received the BAM infusion. Return to the ED for any new or worsening symptoms. Is patient prescribed a controlled substance at d/c from ED?: No Referrals: Efrain Ashraf MD [Primary Care Provider] - 1-2 days Time of Disposition: 17:40
[2020-07-02] MEDS ORDERED: BAMLANIVIMAB 700 MG in SODIUM CHLORIDE 0.9% 50 ML IVPB ONE (18:30)
[2020-07-02 19:30] VITALS: RESP 20
[2020-07-02 20:34] VITALS: BP 159/95; PULSE 108; TEMP 101
== END 2020-07-02 20:34 | disposition home or self-care (01) ==
LOC: EC 13:53
DX: U07.1 COVID-19 (principal); F31.9 Bipolar disorder, unspecified; N17.9 Acute kidney failure, unspecified; Z93.2 Ileostomy status
CPT/HCPCS: 36415; 93005; 85379; 80053; 83605; 83615; 83735; 85025; 85610; 85730; 86140; 84145; 71046; 99285; 96360; Q0239

== ENCOUNTER 2021-01-28 09:49 | Inpatient (IN) | payer MEDICARE ==
[2021-01-28] MEDS ORDERED: PANTOPRAZOLE 40 MG/10 ML VIAL IVP STA (10:37)
--- NOTE | 2021-01-28 11:06 | ED ---
GI Bleed HPI - General Chief complaint: GI Bleed Stated complaint: hematemesis Time Seen by Provider: 01/28/21 10:37 Source: patient, RN notes reviewed Mode of arrival: wheelchair Limitations: physical limitation - History of Present Illness Initial comments: Patient is a 56-year-old male presents to the ED for abdominal discomfort and reported black tar like vomiting. He states he started feeling unwell this past with increased bowel movements, diarrhea episodes of vomiting every 2-3 hours. Patient states he has not been able to eat more than one bite over the last 2 days, also difficulty keeping down liquids. Patient reports history of colostomy reversal with similar like symptoms during hospital stay. Patient denies any fevers or cough, congestion shortness breath or chest pain. Patient denies any abdominal pain reports more as just discomfort and feeling of fullness. - Related Data Home Medications Medication Instructions Recorded Confirmed buPROPion XL [Wellbutrin XL] 300 mg PO DAILY 05/20/14 05/29/20 risperiDONE 3 mg PO HS 05/20/14 05/29/20 Cholecalciferol [Vitamin D3 (25 50 mcg PO DAILY 05/29/20 05/29/20 Mcg = 1000 Iu)] lamoTRIgine [LaMICtal] 200 mg PO DAILY 05/29/20 05/29/20 ondansetron HCL [Zofran] 8 mg PO Q8HR PRN 05/29/20 05/29/20 Allergies Allergy/AdvReac Type Severity Reaction Status Date / Time No Known Allergies Allergy Verified 01/28/21 10:24 Review of Systems ROS Statement: Those systems with pertinent positive or pertinent negative responses have been documented in the HPI. ROS Other: All systems not noted in ROS Statement are negative. Past Medical History Past Medical History: Neurologic Disorder, Seizure Disorder, Skin Disorder Additional Past Medical History / Comment(s): VIPIN'S DISEASE, PARKINSON'S, BIPOLAR. LAST SEIZURE 01/2014. 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 LAZY BOWEL THEREFORE ILEOSTOMY, covid History of Any Multi-Drug Resistant Organisms: None Reported Past Surgical History: Hernia Repair, Orthopedic Surgery Additional Past Surgical History / Comment(s): RT FOOT SURG, COLONOSCOPY 05/2013- NEEDED TO BE CLEANED OUT BETTER- REPEAT COLONOSCOPY 06/29/14.medical history - being checked for vipin's disease. ILEOSTOMY. Past Anesthesia/Blood Transfusion Reactions: No Reported Reaction Past Psychological History: Anxiety, Bipolar Smoking Status: Never smoker Past Alcohol Use History: None Reported Past Drug Use History: None Reported - Past Family History Father Family Medical History: Unable to Obtain Mother Family Medical History: Unable to Obtain General Exam Limitations: physical limitation Respiratory exam: Present: normal lung sounds bilaterally. Absent: respiratory distress, wheezes, rales, rhonchi, stridor Cardiovascular Exam: Present: normal rhythm, tachycardia, normal heart sounds. Absent: systolic murmur, diastolic murmur, rubs, gallop, clicks GI/Abdominal exam: Present: soft, tenderness (mild generalized), hyperactive bowel sounds Neurological exam: Present: alert, oriented X3 Skin exam: Present: warm, dry, intact, normal color. Absent: rash Course Vital Signs 01/28/21 01/28/21 10:20 12:08 Temperature 98.7 F Pulse Rate 129 H 113 H Respiratory 18 20 Rate Blood Pressure 98/65 108/85 O2 Sat by Pulse 98 99 Oximetry Medical Decision Making - Medical Decision Making Patient will be admitted for repeat H&H, Protonix, surgery consult. - Lab Data Result diagrams: 01/28/21 11:34 01/28/21 11:34 Lab Results 01/28/21 01/28/21 01/28/21 Range/Units 11:34 11:34 11:34 WBC 6.2 (3.8-10.6) k/uL RBC 4.59 (4.30-5.90) m/uL Hgb 13.9 (13.0-17.5) gm/dL Hct 42.9 (39.0-53.0) % MCV 93.4 (80.0-100.0) fL MCH 30.3 (25.0-35.0) pg MCHC 32.4 (31.0-37.0) g/dL RDW 13.8 (11.5-15.5) % Plt Count 377 (150-450) k/uL MPV 7.3 Neutrophils % 81 % Lymphocytes % 9 % Monocytes % 8 % Eosinophils % 0 % Basophils % 0 % Neutrophils # 5.1 (1.3-7.7) k/uL Lymphocytes # 0.6 L (1.0-4.8) k/uL Monocytes # 0.5 (0-1.0) k/uL Eosinophils # 0.0 (0-0.7) k/uL Basophils # 0.0 (0-0.2) k/uL PT 10.2 (9.0-12.0) sec INR 0.9 (<1.2) APTT 23.8 (22.0-30.0) sec Sodium 141 (137-145) mmol/L Potassium 4.0 (3.5-5.1) mmol/L Chloride 102 (98-107) mmol/L Carbon Dioxide 17 L (22-30) mmol/L Anion Gap 22 mmol/L BUN 45 H (9-20) mg/dL Creatinine 1.42 H (0.66-1.25) mg/dL Est GFR (CKD-EPI)AfAm 64 (>60 ml/min/1.73 sqM) Est GFR (CKD-EPI)NonAf 56 (>60 ml/min/1.73 sqM) Glucose 109 H (74-99) mg/dL Plasma Lactic Acid Zechariah (0.7-2.0) mmol/L Calcium 10.4 H (8.4-10.2) mg/dL Total Bilirubin 0.9 (0.2-1.3) mg/dL AST 18 (17-59) U/L ALT 11 (4-49) U/L Alkaline Phosphatase 85 (38-126) U/L Total Protein 8.5 H (6.3-8.2) g/dL Albumin 5.2 H (3.5-5.0) g/dL Lipase 233 (23-300) U/L Blood Type Blood Type Confirm Blood Type Recheck Bld Type Recheck Status Antibody Screen Spec Expiration Date 01/28/21 01/28/21 01/28/21 Range/Units 11:34 11:34 11:35 WBC (3.8-10.6) k/uL RBC (4.30-5.90) m/uL Hgb (13.0-17.5) gm/dL Hct (39.0-53.0) % MCV (80.0-100.0) fL MCH (25.0-35.0) pg MCHC (31.0-37.0) g/dL RDW (11.5-15.5) % Plt Count (150-450) k/uL MPV Neutrophils % % Lymphocytes % % Monocytes % % Eosinophils % % Basophils % % Neutrophils # (1.3-7.7) k/uL Lymphocytes # (1.0-4.8) k/uL Monocytes # (0-1.0) k/uL Eosinophils # (0-0.7) k/uL Basophils # (0-0.2) k/uL PT (9.0-12.0) sec INR (<1.2) APTT (22.0-30.0) sec Sodium (137-145) mmol/L Potassium (3.5-5.1) mmol/L Chloride (98-107) mmol/L Carbon Dioxide (22-30) mmol/L Anion Gap mmol/L BUN (9-20) mg/dL Creatinine (0.66-1.25) mg/dL Est GFR (CKD-EPI)AfAm (>60 ml/min/1.73 sqM) Est GFR (CKD-EPI)NonAf (>60 ml/min/1.73 sqM) Glucose (74-99) mg/dL Plasma Lactic Acid Zechariah 1.1 (0.7-2.0) mmol/L Calcium (8.4-10.2) mg/dL Total Bilirubin (0.2-1.3) mg/dL AST (17-59) U/L ALT (4-49) U/L Alkaline Phosphatase (38-126) U/L Total Protein (6.3-8.2) g/dL Albumin (3.5-5.0) g/dL Lipase (23-300) U/L Blood Type O Positive Blood Type Confirm O Positive Blood Type Recheck No Previous Record Bld Type Recheck Status CABO Indicated Antibody Screen NEGATIVE Spec Expiration Date 01/31/20212333 Disposition Clinical Impression: Hematemesis, Gastritis Disposition: ADMITTED IP TO THIS [facility] Condition: Fair Referrals: Efrain Ashraf MD [Primary Care Provider] - 1-2 days
[2021-01-28 11:43] LABS: Basophils % (A) 0 %; Eosinophils % (A) 0 %; HCT 42.9 % (39.0-53.0); HGB 13.9 gm/dL (13.0-17.5); Lymphocytes # (A) 0.6 k/uL (1.0-4.8); Lymphocytes % (A) 9 %; MCH 30.3 pg (25.0-35.0); MCHC 32.4 g/dL (31.0-37.0); MCV 93.4 fL (80.0-100.0); Mean Platelet Volume 7.3; Monocytes # (A) 0.5 k/uL (0-1.0); Monocytes % (A) 8 %; Neutrophils # (A) 5.1 k/uL (1.3-7.7); Neutrophils % (A) 81 %; Platelet Count 377 k/uL (150-450); RBC 4.59 m/uL (4.30-5.90); RDW 13.8 % (11.5-15.5); WBC 6.2 k/uL (3.8-10.6)
[2021-01-28 11:56] LABS: INR 0.9 (<1.2); Partial Thromboplastin Time 23.8 sec (22.0-30.0); Prothrombin Time 10.2 sec (9.0-12.0)
[2021-01-28 11:57] LABS: Albumin 5.2 g/dL (3.5-5.0); Calcium 10.4 mg/dL (8.4-10.2); Total Bilirubin 0.9 mg/dL (0.2-1.3); Total Protein 8.5 g/dL (6.3-8.2)
[2021-01-28] MEDS ORDERED: ONDANSETRON 4 MG/2 ML VIAL IVP PRN (12:27)
[2021-01-28] MEDS ORDERED: NALOXONE 0.4 MG/ML 1 ML VIAL IV PRN (12:27)
[2021-01-28] MEDS: SODIUM CHLORIDE 0.9% 1,000 ML IV SCH (13:18)
[2021-01-28] MEDS ORDERED: SODIUM CHLORIDE 0.9% 1,000 ML IV ONE (17:02)
--- NOTE | 2021-01-28 17:05 | P.HPIM ---
History of Present Illness This is a pleasant 56 years old male with past medical history of Seizure Disorder,VIPIN'S DISEASE, PARKINSON'S, BIPOLAR. LAST SEIZURE 01/2014. 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 LAZY BOWEL THEREFORE ILEOSTOMY, covid 07/2020 Also patient had recent surgery@[facility] when part of the colon removed and small intestine connected to the rectum, patient and at bedside but not sure about the diagnosis but they said no cancer. Patient presents because of nausea vomiting and diarrhea, which started 2 days ago. Last night he woke up 4 times in the middle of night for diarrhea and 6 time during the day, is large amount with no blood in it. Also his been vomiting first-degree greenish then turned black which he got worried so he came to emergency room. Last night he vomited 3 dark and black vomitus. Has very mild abdominal pain in the left lower area but on examination there is no pain or tenderness. He has some dizziness when standing up. Also has low appetite. No chest pain or dyspnea. No headache or weakness. He denies smoking, alcohol or illicit drugs. Patient is tachycardic at 113, blood pressure was low 98/65. CBC is unremarkable, mild lymphopenia at 0.6. INR 0.9. Creatinine elevated 1.4 was 1.3 on 06/2020, however before that it was 0.7-1.2. Lipase normal. Coronavirus not detected In the emergency room he started on normal sinus 75 mL/h, with Protonix 1 and Zofran. And clear liquid diet Review of Systems Review of systems CONSTITUTIONAL: No fever, no malaise, no fatigue. HEENT: No recent visual problems or hearing problems. Denied any sore throat. CARDIOVASCULAR: No orthopnea, PND, no palpitations, no syncope. PULMONARY: No shortness of breath, no cough, no hemoptysis. GASTROINTESTINAL: No diarrhea, no nausea, no vomiting, no abdominal pain. Normoactive bowel sounds. NEUROLOGICAL: No headaches, no weakness, no numbness. HEMATOLOGICAL: Denies any bleeding or petechiae. GENITOURINARY: Denies any burning micturition, frequency, or urgency. MUSCULOSKELETAL/RHEUMATOLOGICAL: Denies any joint pain, swelling, or any muscle pain. ENDOCRINE: Denies any polyuria or polydipsia. Past Medical History Past Medical History: Neurologic Disorder, Seizure Disorder, Skin Disorder Additional Past Medical History / Comment(s): VIPIN'S DISEASE, PARKINSON'S, BIPOLAR. LAST SEIZURE 01/2014. 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 LAZY BOWEL THEREFORE ILEOSTOMY, covid 07/2020 History of Any Multi-Drug Resistant Organisms: None Reported Past Surgical History: Hernia Repair, Orthopedic Surgery Additional Past Surgical History / Comment(s): RT FOOT SURG, COLONOSCOPY 05/2013- NEEDED TO BE CLEANED OUT BETTER- REPEAT COLONOSCOPY 06/29/14.medical history - being checked for vipin's disease. ILEOSTOMY. Past Anesthesia/Blood Transfusion Reactions: No Reported Reaction Past Psychological History: Anxiety, Bipolar Smoking Status: Never smoker Past Alcohol Use History: None Reported Past Drug Use History: None Reported - Past Family History Father Family Medical History: Unable to Obtain Mother Family Medical History: Unable to Obtain Medications and Allergies Home Medications Medication Instructions Recorded Confirmed Type buPROPion XL [Wellbutrin XL] 300 mg PO DAILY 05/20/14 01/28/21 History risperiDONE 3 mg PO HS 05/20/14 01/28/21 History Cholecalciferol [Vitamin D3 (25 50 mcg PO DAILY 05/29/20 01/28/21 History Mcg = 1000 Iu)] lamoTRIgine [LaMICtal] 200 mg PO DAILY 05/29/20 01/28/21 History Famotidine [Pepcid] 20 mg PO BID PRN 01/28/21 01/28/21 History hydrOXYzine pamoate [Vistaril] 25 - 50 mg PO BID PRN 01/28/21 01/28/21 History Allergies Allergy/AdvReac Type Severity Reaction Status Date / Time No Known Allergies Allergy Verified 01/28/21 10:24 Physical Exam Vitals: Vital Signs Temp Pulse Resp BP Pulse Ox 01/28/21 15:06 113 H 20 119/83 98 01/28/21 12:08 113 H 20 108/85 99 01/28/21 10:20 98.7 F 129 H 18 98/65 98 Intake and Output 01/28/21 01/28/21 01/28/21 06:59 14:59 22:59 Other: Weight 74.843 kg 74.843 kg GENERAL: The patient is alert and oriented x3, not in any acute distress. Well developed, well nourished. HEENT: Pupils are round and equally reacting to light. EOMI. No scleral icterus. No conjunctival pallor. Normocephalic, atraumatic. No pharyngeal erythema. No thyromegaly. CARDIOVASCULAR: S1 and S2 present. No murmurs, rubs, or gallops. PULMONARY: Chest is clear to auscultation, no wheezing or crackles. ABDOMEN: Soft, nontender, nondistended, normoactive bowel sounds. No palpable organomegaly. MUSCULOSKELETAL: No joint swelling or deformity. EXTREMITIES: No cyanosis, clubbing, or pedal edema. NEUROLOGICAL: Gross neurological examination did not reveal any focal deficits. SKIN: No rashes. no petechiae. Results CBC & Chem 7: 01/28/21 11:34 01/28/21 11:34 Labs: Abnormal Lab Results - Last 24 Hours (Table) 01/28/21 01/28/21 Range/Units 11:34 11:34 Lymphocytes # 0.6 L (1.0-4.8) k/uL Carbon Dioxide 17 L (22-30) mmol/L BUN 45 H (9-20) mg/dL Creatinine 1.42 H (0.66-1.25) mg/dL Glucose 109 H (74-99) mg/dL Calcium 10.4 H (8.4-10.2) mg/dL Total Protein 8.5 H (6.3-8.2) g/dL Albumin 5.2 H (3.5-5.0) g/dL Thrombosis Risk Factor Assmnt - Choose All That Apply Any of the Below Risk Factors Present?: Yes Each Factor Represents 1 point: Age 41-60 years Thrombosis Risk Factor Assessment Total Risk Factor Score: 1 Thrombosis Risk Factor Assessment Level: Low Risk Assessment and Plan Assessment: Acute gastroenteritis Dark vomitus, Rule out GI bleed Acute kidney injury, possible elements of chronic kidney disease Dehydration with tachycardia Recent colectomy as per family at [facility] History of seizure disorder History of Vipin disease History of Parkinson disease History of bipolar Plan: This is a pleasant 56 years old male who presents with diarrhea and vomiting wi th Dr. merritt. Monitor hemoglobin Aggressive fluid hydration Labs and medication were reviewed.. Continue same treatment. Continue with symptomatic treatment. Resume home medication. Monitor lytes and vitals. DVT and GI prophylaxis. Further recommendationsas per clinical course of the patient DVT prophylaxis:no Subcutaneous heparinFor possible GI bleed GI Prophylaxis: Ppi Prognosis is guarded
[2021-01-28 17:56] LABS: HCT 38.4 % (39.0-53.0); HGB 12.9 gm/dL (13.0-17.5); MCH 31.4 pg (25.0-35.0); MCHC 33.6 g/dL (31.0-37.0); MCV 93.2 fL (80.0-100.0); Mean Platelet Volume 7.2; Platelet Count 353 k/uL (150-450); RBC 4.12 m/uL (4.30-5.90); RDW 14.5 % (11.5-15.5); WBC 5.7 k/uL (3.8-10.6)
[2021-01-28] MEDS: PANTOPRAZOLE 40 MG/10 ML VIAL IV SCH (20:34)
[2021-01-29] MEDS: SODIUM CHLORIDE 0.9% 1,000 ML IV SCH ×4 (03:58→16:12)
[2021-01-29] MEDS: PANTOPRAZOLE 40 MG/10 ML VIAL IV SCH ×2 (08:43→21:03)
[2021-01-29 09:42] LABS: Basophils # (A) 0.03 X 10*3/uL (0.00-0.10); Basophils % (A) 0.7 %; Eosinophils # (A) 0.14 X 10*3/uL (0.04-0.35); Eosinophils % (A) 3.3 %; HGB 10.6 g/dL (13.0-17.0); Lymphocytes # (A) 1.32 X 10*3/uL (0.90-5.00); Lymphocytes % (A) 31.2 %; MCH 29.9 pg (27.0-32.0); MCHC 32.1 g/dL (32.0-37.0); MCV 93.2 fL (80.0-97.0); Mean Platelet Volume 9.5 fL (9.5-12.2); Monocytes # (A) 0.69 X 10*3/uL (0.20-1.00); Monocytes % (A) 16.3 %; Neutrophils # (A) 2.02 X 10*3/uL (1.80-7.70); Neutrophils % (A) 47.8 %; Platelet Count 268 X 10*3/uL (140-440); RBC 3.54 X 10*6/uL (4.40-5.60); WBC 4.23 X 10*3/uL (4.50-10.00)
--- NOTE | 2021-01-29 10:46 | P.GSCN ---
History of Present Illness Consult date: 01/29/21 Reason for Consult: Abdominal pain, nausea History of present illness: This is a 56-year-old male who was admitted through the emergency room with complaints of abdominal pain and nausea. Patient underwent reversal of ileostomy with subtotal colectomy and ileorectal anastomosis in October of this year. Patient's surgeon is in the [facility] area. Patient states he has significant pain and nausea prior to admission. However in the hospital he has had flatus a small bowel movement some diarrhea. He states his pain is improved. Past Medical History Past Medical History: Neurologic Disorder, Seizure Disorder, Skin Disorder Additional Past Medical History / Comment(s): VIPIN'S DISEASE, PARKINSON'S, BIPOLAR. LAST SEIZURE 01/2014. 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 LAZY BOWEL THEREFORE ILEOSTOMY, covid 07/2020 History of Any Multi-Drug Resistant Organisms: None Reported Past Surgical History: Hernia Repair, Orthopedic Surgery Additional Past Surgical History / Comment(s): RT FOOT SURG, COLONOSCOPY 05/2013- NEEDED TO BE CLEANED OUT BETTER- REPEAT COLONOSCOPY 06/29/14.medical history - being checked for vipin's disease. ILEOSTOMY. Past Anesthesia/Blood Transfusion Reactions: No Reported Reaction Past Psychological History: Anxiety, Bipolar Smoking Status: Never smoker Past Alcohol Use History: None Reported Past Drug Use History: None Reported - Past Family History Father Family Medical History: Unable to Obtain Mother Family Medical History: Unable to Obtain Medications and Allergies Home Medications Medication Instructions Recorded Confirmed Type buPROPion XL [Wellbutrin XL] 300 mg PO DAILY 05/20/14 01/28/21 History risperiDONE 3 mg PO HS 05/20/14 01/28/21 History Cholecalciferol [Vitamin D3 (25 50 mcg PO DAILY 05/29/20 01/28/21 History Mcg = 1000 Iu)] lamoTRIgine [LaMICtal] 200 mg PO DAILY 05/29/20 01/28/21 History Famotidine [Pepcid] 20 mg PO BID PRN 01/28/21 01/28/21 History hydrOXYzine pamoate [Vistaril] 25 - 50 mg PO BID PRN 01/28/21 01/28/21 History Allergies Allergy/AdvReac Type Severity Reaction Status Date / Time No Known Allergies Allergy Verified 01/28/21 10:24 Surgical - Exam Vital Signs Temp Pulse Resp BP Pulse Ox 98.7 F 129 H 18 98/65 98 01/28/21 10:20 01/28/21 10:20 01/28/21 10:20 01/28/21 10:20 01/28/21 10:20 - General well developed, well nourished, no distress - Eyes PERRL - ENT normal pinna - Neck no masses - Respiratory normal expansion - Cardiovascular Rhythm: regular - Abdomen Abdomen: soft, non tender Results - Labs 01/29/21 07:17 01/28/21 11:34 Abnormal Lab Results - Last 24 Hours (Table) 01/28/21 01/28/21 01/28/21 Range/Units 11:34 11:34 17:24 WBC (4.50-10.00) X 10*3/uL RBC 4.12 L (4.30-5.90) m/uL Hgb 12.9 L (13.0-17.5) gm/dL Hct 38.4 L (39.0-53.0) % Lymphocytes # 0.6 L (1.0-4.8) k/uL Carbon Dioxide 17 L (22-30) mmol/L BUN 45 H (9-20) mg/dL Creatinine 1.42 H (0.66-1.25) mg/dL Glucose 109 H (74-99) mg/dL Calcium 10.4 H (8.4-10.2) mg/dL Total Protein 8.5 H (6.3-8.2) g/dL Albumin 5.2 H (3.5-5.0) g/dL 01/29/21 Range/Units 07:17 WBC 4.23 L (4.50-10.00) X 10*3/uL RBC 3.54 L (4.30-5.90) m/uL Hgb 10.6 L (13.0-17.5) gm/dL Hct 33.0 L (39.0-53.0) % Lymphocytes # (1.0-4.8) k/uL Carbon Dioxide (22-30) mmol/L BUN (9-20) mg/dL Creatinine (0.66-1.25) mg/dL Glucose (74-99) mg/dL Calcium (8.4-10.2) mg/dL Total Protein (6.3-8.2) g/dL Albumin (3.5-5.0) g/dL Diabetes panel 01/28/21 Range/Units 11:34 Sodium 141 (137-145) mmol/L Potassium 4.0 (3.5-5.1) mmol/L Chloride 102 (98-107) mmol/L Carbon Dioxide 17 L (22-30) mmol/L BUN 45 H (9-20) mg/dL Creatinine 1.42 H (0.66-1.25) mg/dL Glucose 109 H (74-99) mg/dL Calcium 10.4 H (8.4-10.2) mg/dL AST 18 (17-59) U/L ALT 11 (4-49) U/L Alkaline Phosphatase 85 (38-126) U/L Total Protein 8.5 H (6.3-8.2) g/dL Albumin 5.2 H (3.5-5.0) g/dL Calcium panel 01/28/21 Range/Units 11:34 Calcium 10.4 H (8.4-10.2) mg/dL Albumin 5.2 H (3.5-5.0) g/dL Pituitary panel 01/28/21 Range/Units 11:34 Sodium 141 (137-145) mmol/L Potassium 4.0 (3.5-5.1) mmol/L Chloride 102 (98-107) mmol/L Carbon Dioxide 17 L (22-30) mmol/L BUN 45 H (9-20) mg/dL Creatinine 1.42 H (0.66-1.25) mg/dL Glucose 109 H (74-99) mg/dL Calcium 10.4 H (8.4-10.2) mg/dL Adrenal panel 01/28/21 Range/Units 11:34 Sodium 141 (137-145) mmol/L Potassium 4.0 (3.5-5.1) mmol/L Chloride 102 (98-107) mmol/L Carbon Dioxide 17 L (22-30) mmol/L BUN 45 H (9-20) mg/dL Creatinine 1.42 H (0.66-1.25) mg/dL Glucose 109 H (74-99) mg/dL Calcium 10.4 H (8.4-10.2) mg/dL Total Bilirubin 0.9 (0.2-1.3) mg/dL AST 18 (17-59) U/L ALT 11 (4-49) U/L Alkaline Phosphatase 85 (38-126) U/L Total Protein 8.5 H (6.3-8.2) g/dL Albumin 5.2 H (3.5-5.0) g/dL Assessment and Plan Assessment: 56-year-old male with what appeared to use present as a small bowel structure. The patient has clinically opened up with flatus and bowel movement. He will remain on clear liquids.
[2021-01-29 12:45] LABS: African American GFR (CKD) 115.8 (60.0-200.0); BUN/Creat Ratio 28.04 Ratio (12.00-20.00); Blood Urea Nitrogen 22.8 mg/dL (9.0-27.0); Calcium 8.4 mg/dL (8.7-10.3); Carbon Dioxide 20.6 mmol/L (21.6-31.8); Non-African American GFR(CKD) 99.9 (60.0-200.0); Potassium 3.3 mmol/L (3.5-5.5)
[2021-01-29] MEDS ORDERED: Potassium Replacement Protocol 1 EACH MISC MISCELLANE PRN (13:57)
[2021-01-29] MEDS: POTASSIUM CHLORIDE ER 20 MEQ TAB.ER PO SCH ×2 (14:42→16:12)
--- NOTE | 2021-01-29 21:44 | P.PN ---
Subjective This is a pleasant 56 years old male with past medical history of Seizure Disorder,NICHOLAS'S DISEASE, PARKINSON'S, BIPOLAR. LAST SEIZURE 01/2014. 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 LAZY BOWEL THEREFORE ILEOSTOMY, covid 07/2020 Also patient had recent surgery@[facility] when part of the colon removed and small intestine connected to the rectum, patient and at bedside but not sure about the diagnosis but they said no cancer. Patient presents because of nausea vomiting and diarrhea, which started 2 days ago. Last night he woke up 4 times in the middle of night for diarrhea and 6 time during the day, is large amount with no blood in it. Also his been vomiting first-degree greenish then turned black which he got worried so he came to emergency room. Last night he vomited 3 dark and black vomitus. Has very mild abdominal pain in the left lower area but on examination there is no pain or tenderness. He has some dizziness when standing up. Also has low appetite. No chest pain or dyspnea. No headache or weakness. He denies smoking, alcohol or illicit drugs. Patient is tachycardic at 113, blood pressure was low 98/65. CBC is unremarkable, mild lymphopenia at 0.6. INR 0.9. Creatinine elevated 1.4 was 1.3 on 06/2020, however before that it was 0.7-1.2. Lipase normal. Coronavirus not detected In the emergency room he started on normal sinus 75 mL/h, with Protonix 1 and Zofran. And clear liquid diet 01/29/2021 Patient today has no more vomiting since admission. On admission he had Doppler vomitus. Patient is A liquid diet which he able to tolerate well. Hemoglobin dropped slightly today 12.9 down to 10.6 . Creatinine improved back to normal 0.8. He remains on Protonix and normal saline which can be lowered to 75 mL/h Surgical consult is appreciated they recommended to keep monitoring while keeping the patient on liquid diet for now. Monitor hemoglobin the morning Objective - Vital Signs Vital signs: Vital Signs Temp 98.1 F 01/29/21 15:00 Pulse 80 01/29/21 15:00 Resp 17 01/29/21 15:00 BP 102/77 01/29/21 15:00 Pulse Ox 98 01/29/21 15:00 Intake & Output 01/28/21 01/29/21 01/29/21 18:59 06:59 18:59 Weight 74.843 kg Other: # Voids 2 - Exam GENERAL: The patient is alert and oriented x3, not in any acute distress. Well developed, well nourished. HEENT: Pupils are round and equally reacting to light. EOMI. No scleral icterus. No conjunctival pallor. Normocephalic, atraumatic. No pharyngeal erythema. No thyromegaly. CARDIOVASCULAR: S1 and S2 present. No murmurs, rubs, or gallops. PULMONARY: Chest is clear to auscultation, no wheezing or crackles. ABDOMEN: Soft, nontender, nondistended, normoactive bowel sounds. No palpable organomegaly. MUSCULOSKELETAL: No joint swelling or deformity. EXTREMITIES: No cyanosis, clubbing, or pedal edema. NEUROLOGICAL: Gross neurological examination did not reveal any focal deficits. SKIN: No rashes. no petechiae. - Labs CBC & Chem 7: 01/29/21 07:17 01/29/21 07:17 Labs: Abnormal Lab Results - Last 24 Hours (Table) 01/28/21 01/29/21 01/29/21 Range/Units 17:24 07:17 07:17 WBC 4.23 L (4.50-10.00) X 10*3/uL RBC 4.12 L 3.54 L (4.30-5.90) m/uL Hgb 12.9 L 10.6 L (13.0-17.5) gm/dL Hct 38.4 L 33.0 L (39.0-53.0) % Potassium 3.3 L (3.5-5.5) mmol/L Carbon Dioxide 20.6 L (21.6-31.8) mmol/L BUN/Creatinine Ratio 28.04 H (12.00-20.00) Ratio Calcium 8.4 L (8.7-10.3) mg/dL Assessment and Plan Assessment: Acute gastroenteritis, improving Dark vomitus, Rule out GI bleed. Looks like stopped and no more vomiting Acute kidney injury, resolved Dehydration with tachycardia. Improved significantly Recent colectomy as per family at [facility] History of seizure disorder History of Nicholas disease History of Parkinson disease History of bipolar Plan: This is a pleasant 56 years old male who presents with diarrhea and vomiting with Dr. merritt. Monitor hemoglobin, Continue with IV hydration Surgical team on the case. Recommend continue with conservative management for now Labs and medication were reviewed.. Continue same treatment. Continue with symptomatic treatment. Resume home medication. Monitor lytes and vitals. DVT and GI prophylaxis. Further recommendations as per clinical course of the patient DVT prophylaxis:no Subcutaneous heparin For possible GI bleed GI Prophylaxis: Ppi Prognosis is guarded
[2021-01-30] MEDS: SODIUM CHLORIDE 0.9% 1,000 ML IV SCH ×2 (03:24→16:34)
[2021-01-30 08:59] VITALS: RESP 16
[2021-01-30] MEDS: PANTOPRAZOLE 40 MG/10 ML VIAL IV SCH (09:00)
[2021-01-30] MEDS ORDERED: hydrOXYzine pamoate 25 MG CAP PO PRN (09:36)
[2021-01-30] MEDS ORDERED: buPROPion XL 300 MG TAB.ER.24H PO SCH (09:45)
[2021-01-30] MEDS ORDERED: CHOLECALCIFEROL 25 MCG (1000 IU) TABLET PO SCH (09:45)
[2021-01-30] MEDS ORDERED: lamoTRIgine 100 MG TAB PO SCH ×2 (09:45→21:00)
[2021-01-30] MEDS ORDERED: POTASSIUM CHLORIDE ER 20 MEQ TAB.ER PO ONE (11:00)
[2021-01-30 11:57] LABS: Basophils # (A) 0.02 X 10*3/uL (0.00-0.10); Basophils % (A) 0.4 %; Eosinophils # (A) 0.13 X 10*3/uL (0.04-0.35); Eosinophils % (A) 2.8 %; HCT 31.9 % (39.6-50.0); HGB 10.3 g/dL (13.0-17.0); Lymphocytes # (A) 0.89 X 10*3/uL (0.90-5.00); Lymphocytes % (A) 19.3 %; MCH 30.2 pg (27.0-32.0); MCHC 32.3 g/dL (32.0-37.0); MCV 93.5 fL (80.0-97.0); Mean Platelet Volume 9.6 fL (9.5-12.2); Monocytes # (A) 0.61 X 10*3/uL (0.20-1.00); Monocytes % (A) 13.2 %; Neutrophils # (A) 2.96 X 10*3/uL (1.80-7.70); Neutrophils % (A) 64.1 %; Platelet Count 220 X 10*3/uL (140-440); RBC 3.41 X 10*6/uL (4.40-5.60); RDW 14.1 % (11.5-14.5); WBC 4.62 X 10*3/uL (4.50-10.00)
[2021-01-30 11:59] LABS: Magnesium 1.8 mg/dL (1.5-2.4); Potassium 3.3 mmol/L (3.5-5.5)
[2021-01-30] MEDS ORDERED: Magnesium Replacement Protocol 1 EACH MISC MISCELLANE PRN (12:05)
[2021-01-30] MEDS: MAGNESIUM SULFATE-D5W PMX 1 GM in DEXTROSE/WATER 1 100ML.BAG IVPB SCH ×2 (13:39→15:25)
[2021-01-30] MEDS: POTASSIUM CHLORIDE ER 20 MEQ TAB.ER PO SCH (13:51)
--- NOTE | 2021-01-30 15:56 | P.PN ---
Subjective Progress Note Date: 01/30/21 CHIEF COMPLAINT: Abdominal pain HISTORY OF PRESENT ILLNESS: Patient is complaining of an upset stomach. He has had no further hematemesis. He reports still having diarrhea. No blood in the stools. He is currently on a clear liquid diet. Afebrile. WBC 4.23 hemoglobin has trended downwards from 13.9-10.6 yesterday. Labs from today are pending. Patient seen and examined with Dr. menard PHYSICAL EXAM: VITAL SIGNS: Reviewed. GENERAL: Well-developed in no acute distress. HEENT: No sclera icterus. Extraocular movements grossly intact. Moist buccal mucosa. Head is atraumatic, normocephalic. ABDOMEN: Soft. Nondistended. Tenderness with palpation in the epigastric area NEUROLOGIC: Alert and oriented. Cranial nerves II through XII grossly intact. ASSESSMENT: 1. Resolving small bowel obstruction PLAN: -Continue supportive care -Continue clear liquid diet -Continue IV fluids -Check stool for C. diff Physician [employer] note has been reviewed by physician. Signing provider agrees with the documented findings, assessment, and plan of care. Objective - Vital Signs Vital signs: Vital Signs Temp 97.7 F 01/30/21 07:00 Pulse 87 01/30/21 07:00 Resp 16 01/30/21 07:00 BP 125/76 01/30/21 07:00 Pulse Ox 98 01/30/21 07:00 Intake & Output 01/29/21 01/30/21 01/30/21 18:59 06:59 18:59 Other: # Voids 2 - Labs CBC & Chem 7: 01/30/21 07:48 01/30/21 07:48 Labs: Abnormal Lab Results - Last 24 Hours (Table) 01/29/21 Range/Units 07:17 Potassium 3.3 L (3.5-5.5) mmol/L Carbon Dioxide 20.6 L (21.6-31.8) mmol/L BUN/Creatinine Ratio 28.04 H (12.00-20.00) Ratio Calcium 8.4 L (8.7-10.3) mg/dL
[2021-01-30 16:02] VITALS: BP 102/65; PULSE 102; TEMP 99
[2021-01-30] MEDS ORDERED: risperiDONE 1 MG TAB PO SCH (21:00)
== END 2021-01-30 17:50 | disposition home or self-care (01) | DRG 378 ==
LOC: EC 09:49 → 6NMEDSUR 12:26 → OBSVTOIN 01-30 13:47
PROVIDERS: ADMIT Internal Medicine; ATTEND Internal Medicine
DX: K92.0 Hematemesis (principal); G10 Huntington's disease; K56.609 Unspecified intestinal obstruction, unspecified as to partial versus complete obstruction; N17.9 Acute kidney failure, unspecified; K29.70 Gastritis, unspecified, without bleeding; K52.9 Noninfective gastroenteritis and colitis, unspecified; D72.810 Lymphocytopenia; F31.9 Bipolar disorder, unspecified; F41.9 Anxiety disorder, unspecified; Z20.822 Contact with and (suspected) exposure to COVID-19; G20 Parkinson's disease; G40.909 Epilepsy, unspecified, not intractable, without status epilepticus; L71.9 Rosacea, unspecified; Z79.899 Other long term (current) drug therapy; Z90.49 Acquired absence of other specified parts of digestive tract; Z87.19 Personal history of other diseases of the digestive system; Z93.2 Ileostomy status
CPT/HCPCS: 36415; 80048; 80053; 83605; 83690; 83735; 84132; 85025; 85027; 85610; 85730; 86850; 86900; 86901; 87324; 87635; 96374; 96375; 99285

== ENCOUNTER → 2021-02-02 | Outpatient (CLI) | payer MEDICARE ==
--- NOTE | 2021-02-02 11:18 | XR ---
EXAMINATION TYPE: XR abdomen complete w decub DATE OF EXAM: 02/02/2021 CLINICAL HISTORY: History of total colectomy 3 months earlier with right-sided pain and diarrhea for one week. Vomiting 5 days ago. TECHNIQUE: Supine, upright, and left side down lateral decubitus views of the abdomen are obtained. COMPARISON: CT May 29, 2020. FINDINGS: Scattered gas is seen in non-distended left-sided small bowel loops. Gas is seen and more prominent and dilated bowel loops in the right and central abdomen with some nonspecific air-fluid l evels. No free air. Lung bases remain clear. No suspicious calcifications. The osseous structures are intact. IMPRESSION: Overall nonspecific bowel gas pattern. Consider CT to further evaluate if clinical sympt oms persist.
== END | disposition home or self-care (01) ==
LOC: RADXRMAIN 10:24
PROVIDERS: ATTEND Nurse Practitioner
DX: R10.9 Unspecified abdominal pain (principal)
CPT/HCPCS: 74021

== ENCOUNTER → 2023-03-19 | Outpatient (CLI) | payer MEDICARE ==
[2023-03-19 18:46] LABS: Prostate Specific Antigen 0.78 ng/mL (0.000-3.500)
== END | disposition home or self-care (01) ==
LOC: LABWHC1 11:29
PROVIDERS: ATTEND Nurse Practitioner Family
DX: Z12.5 Encounter for screening for malignant neoplasm of prostate (principal); E78.5 Hyperlipidemia, unspecified
CPT/HCPCS: 36415; 82306; 84153

== ENCOUNTER 2023-12-08 17:01 | Emergency (ER) | payer MEDICARE ==
[2023-12-08 17:05] VITALS: RESP 16; TEMP 98.4
[2023-12-08] MEDS: PROPARACAINE 0.5% OPHTH DROPS 15 ML BTL LEFT EYE STA (18:18)
[2023-12-08] MEDS: FLUORESCEIN STRIPS 1 MG STRIP LEFT EYE ONE (18:18)
--- NOTE | 2023-12-08 19:29 | ED ---
Eye Problem HPI - General Chief complaint: Eye Problems Stated complaint: poss allergic reaction Time Seen by Provider: 12/08/23 18:09 Source: patient, RN notes reviewed Mode of arrival: ambulatory Limitations: no limitations - History of Present Illness Initial comments: 58-year-old male presenting with left eye redness x 1 day. States he has been camping over the past few days. Today he began to experience redness in the medial portion of his left eye with mild irritation. Denies drainage, denies contact lenses. Denies vision changes. No other symptoms. States he has poor vision in his right eye however this is chronic. Last tetanus unknown. - Related Data Home Medications Medication Instructions Recorded Confirmed buPROPion XL [Wellbutrin XL] 300 mg PO DAILY 05/20/14 01/28/21 risperiDONE 3 mg PO HS 05/20/14 01/28/21 Cholecalciferol [Vitamin D3 (25 50 mcg PO DAILY 05/29/20 01/28/21 Mcg = 1000 Iu)] lamoTRIgine [LaMICtal] 200 mg PO DAILY 05/29/20 01/28/21 hydrOXYzine pamoate [Vistaril] 25 - 50 mg PO BID PRN 01/28/21 01/28/21 Previous Rx's Medication Instructions Recorded Cholestyramine (with Sugar) 4 gm PO BID #14 packet 01/30/21 [Questran] Pantoprazole [Protonix] 40 mg PO DAILY #30 tab 01/30/21 Potassium Chloride ER [K-Dur 20] 20 meq PO DAILY #30 tab 01/30/21 Ofloxacin 0.3% Ophth Soln [Ocuflox 2 drops LEFT EYE QID 7 Days #10 ml 12/08/23 Ophth Soln] Allergies Allergy/AdvReac Type Severity Reaction Status Date / Time No Known Allergies Allergy Verified 12/08/23 17:05 Review of Systems ROS Statement: Those systems with pertinent positive or pertinent negative responses have been documented in the HPI. ROS Other: All systems not noted in ROS Statement are negative. Past Medical History Past Medical History: Neurologic Disorder, Seizure Disorder, Skin Disorder Additional Past Medical History / Comment(s): VIPIN'S DISEASE, PARKINSON'S, BIPOLAR. LAST SEIZURE 01/2014. 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 LAZY BOWEL THEREFORE ILEOSTOMY, covid 07/2020 History of Any Multi-Drug Resistant Organisms: None Reported Past Surgical History: Hernia Repair, Orthopedic Surgery Additional Past Surgical History / Comment(s): RT FOOT SURG, COLONOSCOPY 05/2013- NEEDED TO BE CLEANED OUT BETTER- REPEAT COLONOSCOPY 06/29/14.medical history - being checked for vipin's disease. ILEOSTOMY. Past Anesthesia/Blood Transfusion Reactions: No Reported Reaction Past Psychological History: Anxiety, Bipolar Smoking Status: Never smoker Past Alcohol Use History: None Reported Past Drug Use History: None Reported - Past Family History Father Family Medical History: Unable to Obtain Mother Family Medical History: Unable to Obtain General Exam Limitations: no limitations General appearance: alert, in no apparent distress Head exam: Present: atraumatic, normocephalic, normal inspection Eye exam: Present: PERRL, EOMI, conjunctival injection (Medial conjunctival injection in left eye, no drainage or periorbital swelling/erythema), other (Visual acuity 20/25 bilaterally, left 20/25, right 20/100. Fluorescein stain reveals mild corneal abrasion medial aspect of left eye). Absent: normal appearance, scleral icterus, periorbital swelling ENT exam: Present: normal exam, normal oropharynx, mucous membranes moist Respiratory exam: Present: normal lung sounds bilaterally. Absent: respiratory distress, wheezes, rales, rhonchi, stridor Cardiovascular Exam: Present: regular rate, normal rhythm, normal heart sounds. Absent: systolic murmur, diastolic murmur, rubs, gallop, clicks Course Vital Signs 12/08/23 12/08/23 17:03 20:05 Temperature 98.4 F Pulse Rate 94 68 Respiratory 16 16 Rate Blood Pressure 149/85 133/87 O2 Sat by Pulse 99 98 Oximetry Medical Decision Making - Medical Decision Making Was pt. sent in by a medical professional or institution (, PA, LOGISTICS PLANNING ENGINEER, urgent care, hospital, or shelter...) When possible be specific @ -No Did you speak to anyone other than the patient for history (EMS, parent, family, police, friend...)? What history was obtained from this source @ -Patient's family provided most of history Did you review nursing and triage notes (agree or disagree)? Why? @ -I reviewed and agree with nursing and triage notes Were old charts reviewed (outside hosp., previous admission, EMS record, old EKG, old radiological studies, urgent care reports/EKG's, shelter records)? Report findings @ -No old charts were reviewed Differential Diagnosis (chest pain, altered mental status, abdominal pain women, abdominal pain men, vaginal bleeding, weakness, fever, dyspnea, syncope, headache, dizziness, GI bleed, back pain, seizure, CVA, palpatations, mental health, musculoskeletal)? @ -Corneal abrasion, corneal ulceration, bacterial conjunctivitis, glaucoma, vitreal hemorrhage, retinal detachment EKG interpreted by me (3pts min.). @ -None X-rays interpreted by me (1pt min.). @ -None done CT interpreted by me (1pt min.). @ -None done U/S interpreted by me (1pt. min.). @ -None done What testing was considered but not performed or refused? (CT, X-rays, U/S, labs)? Why? @ -None What meds were considered but not given or refused? Why? @ -None Did you discuss the management of the patient with other professionals (professionals i.e. , PA, LOGISTICS PLANNING ENGINEER, lab, RT, psych nurse, vp digital marketing social media and crm, curator, teacher, senior major gifts officer, patient case coordinator)? Give summary @ -No Was smoking cessation discussed for >3mins.? @ -No Was critical care preformed (if so, how long)? @ -No Were there social determinants of health that impacted care today? How? (Homelessness, low income, unemployed, alcoholism, drug addiction, transportation, low edu. Level, literacy, decrease access to med. care, assisted, rehab)? @ -No Was there de-escalation of care discussed even if they declined (Discuss DNR or withdrawal of care, Hospice)? DNR status @ -No What co-morbidities impacted this encounter? (DM, HTN, Smoking, COPD, CAD, Cancer, CVA, ARF, Chemo, Hep., AIDS, mental health diagnosis, sleep apnea, morbid obesity)? @ -None Was patient admitted / discharged? Hospital course, mention meds given and route, prescriptions, significant lab abnormalities, going to OR and other pertinent info. @ -Patient was discharged. Patient was seen and evaluated for left eye redness x 1 day. No vision changes. No red flag symptoms. Visual acuity 20/25 left eye. Fluorescein stain revealed mild corneal abrasion and medial aspect of left eye. Discussed diagnosis of corneal abrasion with patient and family. Tetanus was updated. Supportive care discussed. Prescribed ofloxacin drops. Advised to follow-up with ophthalmology in 1 to 3 days for reevaluation. Return precautions discussed and patient and family are agreeable to plan. Case was discussed with my ED attending Dr. Arrieta. Patient discharged in stable condition. Undiagnosed new problem with uncertain prognosis? @ -No Drug Therapy requiring intensive monitoring for toxicity (Heparin, Nitro, Insulin, Cardizem)? @ -No Were any procedures done? @ -No Diagnosis/symptom? @ -Corneal abrasion of left eye Acute, or Chronic, or Acute on Chronic? @ -Acute Uncomplicated (without systemic symptoms) or Complicated (systemic symptoms)? @ -Uncomplicated Side effects of treatment? @ -No Exacerbation, Progression, or Severe Exacerbation? @ -No Poses a threat to life or bodily function? How? (Chest pain, [place], [place], pneumonia, PE, COPD, DKA, ARF, appy, cholecystitis, CVA, Diverticulitis, Homicidal, Suicidal, threat to staff... and all critical care pts) @ -No Disposition Clinical Impression: Left corneal abrasion Disposition: HOME SELF-CARE Condition: Stable Instructions (If sedation given, give patient instructions): Corneal Abrasion (ED) Additional Instructions: Use ofloxacin drops as prescribed. Follow-up with ophthalmology in 1 to 3 days for reevaluation. Please return to the Emergency Department if symptoms worsen or any other concerns. Prescriptions: Ofloxacin 0.3% Ophth Soln [Ocuflox Ophth Soln] 2 drops LEFT EYE QID 7 Days #10 ml Is patient prescribed a controlled substance at d/c from ED?: No Referrals: Efrain Ashraf MD [Primary Care Provider] - 1-2 days Time of Disposition: 19:48
[2023-12-08] MEDS: DIPH,PERTUS(ACELL)TETVAC-LF 0.5 ML VIAL IM ONE (20:01)
[2023-12-08 20:06] VITALS: BP 133/87; PULSE 68
== END 2023-12-08 20:06 | disposition home or self-care (01) ==
LOC: EC 17:01
DX: S05.02XA Injury of conjunctiva and corneal abrasion without foreign body, left eye, initial encounter (principal); Z23 Encounter for immunization; X58.XXXA Exposure to other specified factors, initial encounter
CPT/HCPCS: 90471; 90715; 99283

== ENCOUNTER → 2024-08-18 | Outpatient (CLI) | payer MEDICARE ==
--- NOTE | 2024-08-19 11:25 | MR ---
EXAMINATION TYPE: MR brain wo/w con DATE OF EXAM: 08/18/2024 3:26 PM COMPARISON: 11/24/2013. CLINICAL INDICATION: Male, 59 years old with history of R41.3 OTHER AMNESIA Z87.898 PERSONAL HISTORY OF OT; PHH, Memory loss, Dizziness, Hx of Seizures TECHNIQUE: Multi planar, multi sequence imaging was performed through the brain including: T1, T2, In version recovery, susceptibility weighted imaging and gradient echo imaging and Diffusion weighted im aging. The patient was then given intravenous contrast and multi planar, T1 fat-saturation images wer e obtained. IV Contrast: 8.5 mL Gadobutrol FINDINGS: The garza-white junctions, ventricular system, basal cisterns appear unremarkable. Diffusion-weighted imaging shows no evidence of restricted diffusion to suggest acute/subacute infarct. Intracranial ar terial flow voids are maintained. Midline structures show no abnormality. Scattered foci of high T2 s ignal intensity are seen within the periventricular white matter. The susceptibility weighted images do not reveal any evidence for micro-hemorrhage. After administration of gadolinium, no abnormal enha ncement is seen. Hypoplastic right A1 segment. The bone marrow signal is within normal limits. Paranasal sinuses and mastoid air cells: No significant paranasal sinus disease. Visualized orbits: Orbital contents are intact. IMPRESSION: 1. No evidence of intracranial mass, acute/subacute infarct, or abnormal enhancement. 2. Nonspecific white matter changes, likely related to small vessel ischemic disease. [facility], , 08/19/2024 11:23 AM
== END | disposition home or self-care (01) ==
LOC: RADMRIMAIN 14:18
PROVIDERS: ATTEND Psychiatry & Neurology Neurology
DX: R90.82 White matter disease, unspecified (principal); R41.3 Other amnesia; Z87.898 Personal history of other specified conditions
CPT/HCPCS: 82607; 82746; 84443; 70553; A9585